=== PATIENT | male | born 1980 | race Caucasian/White ===

== ENCOUNTER → 2021-04-17 10:13 | Outpatient (BNVA) | payer SELFPAY | PROVIDERS: PCP Nurse Practitioner; Visit Provider Nurse Practitioner | DX: I10 Essential (primary) hypertension (principal) | CPT/HCPCS: 80053 ==

== ENCOUNTER → 2021-05-07 14:35 | Outpatient (BNVA) | payer OTHER, SELFPAY | PROVIDERS: PCP Nurse Practitioner; Visit Provider Nurse Practitioner Family | DX: Z20.822 Contact with and (suspected) exposure to COVID-19 (principal); R50.9 Fever, unspecified | CPT/HCPCS: 87635 ==

== ENCOUNTER → 2022-05-26 15:26 | Outpatient (BNVA) | payer OTHER, SELFPAY | PROVIDERS: Visit Provider Nurse Practitioner Family | DX: R50.9 Fever, unspecified (principal) | CPT/HCPCS: 87400; 87426 ==

== ENCOUNTER 2022-10-22 21:15 | Emergency (ER) | payer OTHER, SELFPAY ==
[2022-10-22 21:22] VITALS: BP 160/114; PULSE 90; RESP 19; TEMP 37.1; O2SAT 95; BMI 34.8
--- NOTE | 2022-10-22 21:26 | ECG_ITS ---
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 Measurements Intervals [place] Rate: 91 P: 49 NE: 198 QRS: -20 QRSD: 121 T: 23 QT: 334 QTc: 412 Interpretive Statements SINUS RHYTHM MODERATE INTRAVENTRICULAR CONDUCTION DELAY [110+ ms QRS DURATION] MODERATE VOLTAGE CRITERIA FOR LVH, CONSIDER NORMAL VARIANT [MEETS CRITERIA IN ONE OF: R(aVL), S(V1), R(V5), R(V5/V6)+S(V1)] No previous ECG available for comparison Electronically Signed On 10-22-2022 23:02:40 CDT by Lisandro Holt M.D. [id number]
--- NOTE | 2022-10-22 21:27 | XRR_ITS ---
PROCEDURE INFORMATION: Exam: XR Chest Exam date and time: 10/22/2022 9:39 PM Age: 42 years old Clinical indication: Pain; Chest pressure; Additional info: Chest pain TECHNIQUE: Imaging protocol: Radiologic exam of the chest. Views: 1 view. COMPARISON: No relevant prior studies available. FINDINGS: Lungs: Unremarkable. No consolidation. Pleural spaces: Unremarkable. No pleural effusion. No pneumothorax. Heart/Mediastinum: Unremarkable. No cardiomegaly. Bones/joints: Unremarkable. XR/XR chest 1V portable [id number] IMPRESSION: No acute findings.
--- NOTE | 2022-10-22 21:37 | ED_ITS ---
Documented by User: Lewis Schaffer 10/22/22 23:36 HPI - Chest Pain General: Chief Complaint: Chest Pain Stated Complaint: CP Time Seen by Provider: 10/22/22 21:16 History of Present Illness: 42-year-old male presents emergency department chief complaint of having chest pain and high blood pressure prior to arrival patient is a known history of high blood pressure reports been noncompliant with medications last 6 months patient reports he did have some chest pressure reports no shortness of breath or palpitations associated with it. Patient presents to the ER for further assessment and management Associated symptoms: Deny abdominal pain, dyspnea, fever(s), nausea, palpitations or vomiting Review of Systems General: Reports: 10 or more systems reviewed and unremarkable except in HPI and below Const: Denies: fever(s), chills or fatigue Eyes: Denies: change in vision or blurry vision Card: Reports: chest pain; Denies: palpitations Resp: Denies: dyspnea or productive cough GI: Denies: abdominal pain, nausea or vomiting : Denies: flank pain Musc: Denies: extremity pain or extremity swelling Skin/Breast: Denies: rash or pruritus Neuro: Reports: headache(s) Psych: Denies: anxiety or depression Justin/Lymph: Denies: easy bleeding All/Imm: Denies: urticaria, throat swelling or facial swelling PFSH ED PFSH: Medical History Cigarette smoker Surgical History History of tonsillectomy History of tympanostomy tube placement Family History Mother Diabetes Hypertension Denies family history of Dementia Lung disease Cancer Stroke Social History Smoking and tobacco status: current every day smoker Second hand smoke exposure: No Smoking risk assessment/counseling performed?: No Alcohol intake: never Desire information about alcohol rehabilitation?: No Counseling given: No Substance/Drug Use: never Desire information about substance/drug rehabilitation?: No Counseling given: No Adopted: No Caregiver/support person: No Lives independently: Yes Household members: family Housing: House Marital status: Single Number of children: 0 service: No Current occupational status: employed Current occupation: [employer] Pets and animals: Yes Pets & animals: dog(s) Do you think of yourself as: Straight/Heterosexual Current gender identity: Male Physical Exam Narrative: EXAM NARRATIVE: Patient appears nontoxic appears in no obvious acute distress. No focal neurodeficit appreciated GCS of 15 NIH is 0 Const: COMMON NORMALS: no acute distress, patient oriented x3 and healthy appearing HENMT: COMMON NORMALS: normocephalic and atraumatic HEAD & SCALP: normocephalic and atraumatic Eye: COMMON NORMALS: Equal, round and reactive pupils present and EOMs intact bilaterally PUPIL: Yes Equal, round and reactive pupils present Neck/C-Spine: COMMON NORMALS: full ROM, supple and no JVD Lymph: LYMPHATIC: no lymphadenopathy noted Chest: COMMONS NORMALS: normal inspection of the chest and normal palpation of entire chest wall Resp: COMMON NORMALS: normal respiratory effort, No retractions and clear to auscultation bilaterally EFFORT & INSPECTION: Yes able to speak in complete sentences and Yes symmetric chest movement AUSCULTATION: clear to auscultation bilaterally Cardio: COMMON NORMALS: no JVD, regular rate and regular rhythm RATE: regular rate RHYTHM: regular rhythm GI: COMMON NORMALS: Normal to inspection, nondistended, normoactive bowel sounds present, Soft to palpation and non-tender INSPECTION: Yes normal to inspection PALPATION: Yes Soft to palpation : COMMON NORMALS: Yes no CVA tenderness BLADDER/KIDNEY EXAM: Yes no CVA tenderness Back/Pelvis: COMMON NORMALS: no CVA tenderness Extremity: COMMON NORMALS: normal to inspection and full ROM Neuro: COMMON NORMALS: patient oriented x3, CN's II-XII intact bilaterally, moves all extremities and no focal motor deficits Psych: COMMON NORMALS: mental status grossly normal, Normal thought process present, cooperative and normal affect THOUGHT PROCESS: Normal thought process present Skin: COMMON NORMALS: no rashes or lesions noted GENERAL SKIN EXAM: no rashes or lesions noted Course Vital Signs: Vital signs: Vital Signs Temperature 98.7 F 10/22/22 21:22 Pulse Rate 92 10/23/22 00:00 Respiratory Rate 20 H 10/23/22 00:00 Blood Pressure 133/89 10/23/22 00:00 Pulse Oximetry 98 10/23/22 00:00 Oxygen Delivery Me thod Room Air 10/22/22 21:22 MDM - Chest Pain Medical Decision Making Due to the patient's symptoms and condition lab work and imaging will be obtained, medication will provided for the patient's high blood pressure we will continue to follow. Initial cardiac troponin came back unremarkable patient blood pressures continue to improve throughout his stay in the emergency department anticipate discharge home pending 2-hour troponin this patient was signed out to Dr. Moody at 2318 anticipate discharge home pending his 2-hour troponin Lab Data 10/22/22 21:38 10/22/22 21:38 Radiology Impressions Chest X-Ray 10/22/22 21:27 IMPRESSION: No acute findings. Laboratory Results WBC 8.5 10^3/uL (4.0-10.0) 10/22/22 21:38 RBC 5.51 10^6/uL (4.1-5.3) H 10/22/22 21:38 Hgb 13.9 g/dL (11.7-16.6) 10/22/22 21:38 Hct 45.1 % (42.0-52.0) 10/22/22 21:38 MCV 81.9 fl (80-94) 10/22/22 21:38 MCH 25.2 pg (28.0-34.0) L 10/22/22 21:38 MCHC 30.8 g/dL (30.0-36.0) 10/22/22 21:38 RDW 14.8 % (12.1-15.1) 10/22/22 21:38 Plt Count 303 10^3/cmm (130-400) 10/22/22 21:38 MPV 10.6 fL (7.4-10.4) H 10/22/22 21:38 Neut % (Auto) 61.0 % 10/22/22 21:38 Lymph % (Auto) 20.5 % 10/22/22 21:38 Cross % (Auto) 11.7 % 10/22/22 21:38 Eos % (Auto) 4.6 % 10/22/22 21:38 Baso % (Auto) 1.7 % 10/22/22 21:38 Neut # (Auto) 5.17 10^3/uL (1.8-7.7) 10/22/22 21:38 Lymph # (Auto) 1.7 10^3/uL (0.8-4.8) 10/22/22 21:38 Cross # (Auto) 1.0 10^3/uL (0.2-0.9) H 10/22/22 21:38 Eos # (Auto) 0.4 10^3/uL (0.0-0.8) 10/22/22 21:38 Baso # (Auto) 0.1 10^3/uL (0.0-0.1) 10/22/22 21:38 Nucleated RBC % (auto) 0 % 10/22/22 21:38 Nucleated RBCs # 0.0 /100WBC 10/22/22 21:38 Sodium 137 mmol/L (136-145) 10/22/22 21:38 Potassium 4.5 mmol/L (3.5-5.1) 10/22/22 21:38 Chloride 101 mmol/L (98-107) 10/22/22 21:38 Carbon Dioxide 23 mmol/L (22-29) 10/22/22 21:38 Anion Gap 17.5 (5-19) 10/22/22 21:38 BUN 14 mg/dL (6-20) 10/22/22 21:38 Creatinine 1.1 mg/dL (0.7-1.2) 10/22/22 21:38 GFR Calculation 73.1 mL/min (90-130) L 10/22/22 21:38 Glucose 97 mg/dL (65-115) 10/22/22 21:38 Calculated Osmolality 284 mOsm/kg (285-295) L 10/22/22 21:38 Calcium 9.3 mg/dL (8.5-10.5) 10/22/22 21:38 Total Bilirubin 0.2 mg/dL (0.15-1.2) 10/22/22 21:38 AST 25 U/L (0-40) 10/22/22 21:38 ALT 25 U/L (0-41) 10/22/22 21:38 Alkaline Phosphatase 82 U/L (40-130) 10/22/22 21:38 Troponin T Baseline 9 ng/L (0-15) 10/22/22 21:38 Troponin T 120 Minute 10.87 ng/L (0-15) 10/22/22 23:56 Delta Troponin T 1.87 ABS# (0-10) 10/22/22 23:56 NT-Pro-B Natriuret Pep 36 pg/mL (0-125) 10/22/22 21:38 Total Protein 7.6 g/dL (6.6-8.7) 10/22/22 21:38 Albumin 4.5 g/dL (3.5-5.2) 10/22/22 21:38 Globulin 3.1 g/dL (1.3-4.6) 10/22/22 21:38 Urine Color Yellow (Yellow) 10/22/22 22:00 Urine Appearance Clear (CLEAR) 10/22/22 22:00 Urine pH 6.5 (5-7) 10/22/22 22:00 Ur Specific Edmond[place] 1.000 (1.005-1.030) L 10/22/22 22:00 Urine Protein Neg (Negative) 10/22/22 22:00 Urine Glucose (UA) Norm (Normal) 10/22/22 22:00 Urine Ketones Negative (Negative) 10/22/22 22:00 Urine Blood Neg (Negative) 10/22/22 22:00 Urine Nitrate Negative (Negative) 10/22/22 22:00 Urine Bilirubin Neg (Negative) 10/22/22 22:00 Urine Urobilinogen Norm mg/dL (Negative) 10/22/22 22:00 Ur Leukocyte Esterase Negative (Negative) 10/22/22 22:00 Urine Opiates Screen Negative ng/mL (Negative) 10/22/22 22:00 Ur Barbiturates Screen Negative ng/mL (Negative) 10/22/22 22:00 Ur Phencyclidine Scrn Negative ng/mL (Negative) 10/22/22 22:00 Ur Amphetamines Screen Negative ng/mL (Negative) 10/22/22 22:00 U Benzodiazepines Scrn Negative ng/mL (Negative) 10/22/22 22:00 Urine Cocaine Screen Negative ng/mL (Negative) 10/22/22 22:00 U Marijuana (THC) Screen Negative ng/mL (Negative) 10/22/22 22:00 Discharge Plan Discharge Patient Disposition: Home Clinical Impression: Chest pain, Essential hypertension Condition: Stable Prescriptions: New Benicar HCT 20-12.5 mg tablet 1 tab PO DAILY Qty: 20 0RF metoprolol tartrate 25 mg tablet 25 mg PO DAILY Qty: 20 0RF No Action ondansetron 8 mg tablet,disintegrating 8 mg PO Q8H PRN (Reason: nausea and vomiting) Qty: 15 0RF ibuprofen 600 mg tablet 600 mg PO Q8H PRN (Reason: pain) Qty: 30 0RF oseltamivir [Tamiflu] 75 mg capsule 75 mg PO BID 5 Days Qty: 10 0RF ondansetron HCl 4 mg tablet 4 mg PO QID PRN (Reason: nausea and vomiting) Qty: 20 0RF Discharge Orders: Discharge ED (Routine); Ordered 10/23/22 Ordered By: Dave Moody Referrals: [facility], [Staff Physician] - 1-3 days Discharge Diet: Cardiac and Low Salt Discharge Activity: Increase activity as tolerated Patient Instructions: Chest Pain (ED), Chronic Hypertension (ED), Opioid Safety, Pain Management Activity Restrictions/Additional Instructions: Please adhere to a low-salt diet please further follow-up with a primary care doctor wanted [facility] in the next 3 to 5 days, please take medication as prescribed and please return the interim if any of your symptoms persist or worse. Coding Level of Care Code ED Cartoonist Special Effects for Chg Fwd Documented by User: Dave Moody, 10/23/22 06:13 HPI - Chest Pain General: Chief Complaint: Chest Pain Stated Complaint: CP Time Seen by Provider: 10/22/22 21:16 [facility] ED 2 PFS: Medical History Cigarette smoker Surgical History History of tonsillectomy History of tympanostomy tube placement Family History Mother Diabetes Hypertension Denies family history of Dementia Lung disease Cancer Stroke Social History Smoking and tobacco status: current every day smoker Second hand smoke exposure: No Smoking risk assessment/counseling performed?: No Alcohol intake: never Desire information about alcohol rehabilitation?: No Counseling given: No Substance/Drug Use: never Desire information about substance/drug rehabilitation?: No Counseling given: No Adopted: No Caregiver/support person: No Lives independently: Yes Household members: family Housing: House Marital status: Single Number of children: 0 service: No Current occupational status: employed Current occupation: [employer] Pets and animals: Yes Pets & animals: dog(s) Do you think of yourself as: Straight/Heterosexual Current gender identity: Male Course Vital Signs: Vital signs: Vital Signs Temperature 98.7 F 10/22/22 21:22 Pulse Rate 92 10/23/22 00:00 Respiratory Rate 20 H 10/23/22 00:00 Blood Pressure 133/89 10/23/22 00:00 Pulse Oximetry 98 10/23/22 00:00 Oxygen Delivery Me thod Room Air 10/22/22 21:22 MDM - Chest Pain Medical Decision Making Due to the patient's symptoms and condition lab work and imaging will be obtained, medication will provided for the patient's high blood pressure we will continue to follow. Initial cardiac troponin came back unremarkable patient blood pressures continue to improve throughout his stay in the emergency department anticipate discharge home pending 2-hour troponin this patient was signed out to Dr. Moody at 2318 anticipate discharge home pending his 2-hour troponin Patient's blood pressure is improved. Troponin delta is 2. Chest x-ray is negative. Other labs are nonremarkable. He will be allowed discharge home. Lab Data 10/22/22 21:38 10/22/22 21:38 Radiology Impressions Chest X-Ray 10/22/22 21:27 IMPRESSION: No acute findings. Laboratory Results WBC 8.5 10^3/uL (4.0-10.0) 10/22/22 21:38 RBC 5.51 10^6/uL (4.1-5.3) H 10/22/22 21:38 Hgb 13.9 g/dL (11.7-16.6) 10/22/22 21: Hct 45.1 % (42.0-52.0) 10/22/22 21: MCV 81.9 fl (80-94) 10/22/22 21: MCH 25.2 pg (28.0-34.0) L 10/22/22 21: MCHC 30.8 g/dL (30.0-36.0) 10/22/22 21:38 RDW 14.8 % (12.1-15.1) 10/22/22 21:38 Plt Count 303 10^3/cmm (130-400) 10/22/22 21:38 MPV 10.6 fL (7.4-10.4) H 10/22/22 21:38 Neut % (Auto) 61.0 % 10/22/22 21:38 Lymph % (Auto) 20.5 % 10/22/22 21:38 Cross % (Auto) 11.7 % 10/22/22 21:38 Eos % (Auto) 4.6 % 10/22/22 21:38 Baso % (Auto) 1.7 % 10/22/22 21:38 Neut # (Auto) 5.17 10^3/uL (1.8-7.7) 10/22/22 21:38 Lymph # (Auto) 1.7 10^3/uL (0.8-4.8) 10/22/22 21:38 Cross # (Auto) 1.0 10^3/uL (0.2-0.9) H 10/22/22 21:38 Eos # (Auto) 0.4 10^3/uL (0.0-0.8) 10/22/22 21:38 Baso # (Auto) 0.1 10^3/uL (0.0-0.1) 10/22/22 21:38 Nucleated RBC % (auto) 0 % 10/22/22 21:38 Nucleated RBCs # 0.0 /100WBC 10/22/22 21:38 Sodium 137 mmol/L (136-145) 10/22/22 21:38 Potassium 4.5 mmol/L (3.5-5.1) 10/22/22 21:38 Chloride 101 mmol/L (98-107) 10/22/22 21:38 Carbon Dioxide 23 mmol/L (22-29) 10/22/22 21:38 Anion Gap 17.5 (5-19) 10/22/22 21:38 BUN 14 mg/dL (6-20) 10/22/22 21:38 Creatinine 1.1 mg/dL (0.7-1.2) 10/22/22 21:38 GFR Calculation 73.1 mL/min (90-130) L 10/22/22 21:38 Glucose 97 mg/dL (65-115) 10/22/22 21:38 Calculated Osmolality 284 mOsm/kg (285-295) L 10/22/22 21:38 Calcium 9.3 mg/dL (8.5-10.5) 10/22/22 21:38 Total Bilirubin 0.2 mg/dL (0.15-1.2) 10/22/22 21:38 AST 25 U/L (0-40) 10/22/22 21:38 ALT 25 U/L (0-41) 10/22/22 21:38 Alkaline Phosphatase 82 U/L (40-130) 10/22/22 21:38 Troponin T Baseline 9 ng/L (0-15) 10/22/22 21:38 Troponin T 120 Minute 10.87 ng/L (0-15) 10/22/22 23:56 Delta Troponin T 1.87 ABS# (0-10) 10/22/22 23:56 NT-Pro-B Natriuret Pep 36 pg/mL (0-125) 10/22/22 21:38 Total Protein 7.6 g/dL (6.6-8.7) 10/22/22 21:38 Albumin 4.5 g/dL (3.5-5.2) 10/22/22 21:38 Globulin 3.1 g/dL (1.3-4.6) 10/22/22 21:38 Urine Color Yellow (Yellow) 10/22/22 22:00 Urine Appearance Clear (CLEAR) 10/22/22 22:00 Urine pH 6.5 (5-7) 10/22/22 22:00 Ur Specific Edmondson 1.000 (1.005-1.030) L 10/22/22 22:00 Urine Protein Neg (Negative) 10/22/22 22:00 Urine Glucose (UA) Norm (Normal) 10/22/22 22:00 Urine Ketones Negative (Negative) 10/22/22 22:00 Urine Blood Neg (Negative) 10/22/22 22:00 Urine Nitrate Negative (Negative) 10/22/22 22:00 Urine Bilirubin Neg (Negative) 10/22/22 22:00 Urine Urobilinogen Norm mg/dL (Negative) 10/22/22 22:00 Ur Leukocyte Esterase Negative (Negative) 10/22/22 22:00 Urine Opiates Screen Negative ng/mL (Negative) 10/22/22 22:00 Ur Barbiturates Screen Negative ng/mL (Negative) 10/22/22 22:00 Ur Phencyclidine Scrn Negative ng/mL (Negative) 10/22/22 22:00 Ur Amphetamines Screen Negative ng/mL (Negative) 10/22/22 22:00 U Benzodiazepines Scrn Negative ng/mL (Negative) 10/22/22 22:00 Urine Cocaine Screen Negative ng/mL (Negative) 10/22/22 22:00 U Marijuana (THC) Screen Negative ng/mL (Negative) 10/22/22 22:00 Discharge Plan Discharge Patient Disposition: Home Clinical Impression: Chest pain, Essential hypertension Condition: Stable Prescriptions: New Benicar HCT 20-12.5 mg tablet 1 tab PO DAILY Qty: 20 0RF metoprolol tartrate 25 mg tablet 25 mg PO DAILY Qty: 20 0RF No Action ondansetron 8 mg tablet,disintegrating 8 mg PO Q8H PRN (Reason: nausea and vomiting) Qty: 15 0RF ibuprofen 600 mg tablet 600 mg PO Q8H PRN (Reason: pain) Qty: 30 0RF oseltamivir [Tamiflu] 75 mg capsule 75 mg PO BID 5 Days Qty: 10 0RF ondansetron HCl 4 mg tablet 4 mg PO QID PRN (Reason: nausea and vomiting) Qty: 20 0RF Discharge Orders: Discharge ED (Routine); Ordered 10/23/22 Ordered By: Dave Moody Referrals: [facility], [Staff Physician] - 1-3 days Discharge Diet: Cardiac and Low Salt Discharge Activity: Increase activity as tolerated Patient Instructions: Chest Pain (ED), Chronic Hypertension (ED), Opioid Safety, Pain Management Activity Restrictions/Additional Instructions: Please adhere to a low-salt diet please further follow-up with a primary care doctor wanted [facility] in the next 3 to 5 days, please take medication as prescribed and please return the interim if any of your symptoms persist or worse. Coding Level of Care Code ED Cartoonist Special Effects for Horacio Argueta
[2022-10-22 21:47] LABS: Basophils # 0.1 10^3/uL (0.0-0.1); Basophils % 1.7 %; Eosinophils # 0.4 10^3/uL (0.0-0.8); Eosinophils % 4.6 %; Hematocrit 45.1 % (42.0-52.0); Hemoglobin 13.9 g/dL (11.7-16.6); Lymphocytes # 1.7 10^3/uL (0.8-4.8); Lymphocytes % 20.5 %; Mean Corpuscular HGB Conc 30.8 g/dL (30.0-36.0); Mean Corpuscular Hemoglobin 25.2 pg (28.0-34.0); Mean Corpuscular Volume 81.9 fl (80-94); Mean Platelet Volume 10.6 fL (7.4-10.4); Monocytes % 11.7 %; Neutrophils # 5.17 10^3/uL (1.8-7.7); Nucleated Red Blood Cells % 0 %; Platelet Count 303 10^3/cmm (130-400); Red Blood Count 5.51 10^6/uL (4.1-5.3); Red Cell Distribution Width 14.8 % (12.1-15.1); White Blood Count 8.5 10^3/uL (4.0-10.0)
[2022-10-22] MEDS: hyDRALAzine 20 mg/mL INJ 1 mL 10 MG IVP (21:59)
[2022-10-22 22:12] LABS: Troponin(5th) Baseline 9 ng/L (0-15)
[2022-10-22 22:20] LABS: Alanine Aminotransferase 25 U/L (0-41); Albumin Level 4.5 g/dL (3.5-5.2); Alkaline Phosphatase 82 U/L (40-130); Blood Urea Nitrogen 14 mg/dL (6-20); Calcium 9.3 mg/dL (8.5-10.5); Carbon Dioxide 23 mmol/L (22-29); Chloride 101 mmol/L (98-107); Globulin 3.1 g/dL (1.3-4.6); Glomerular Filtration Rate 73.1 mL/min (90-130); Glucose 97 mg/dL (65-115); NT Pro B Type Natriuretic Pept 36 pg/mL (0-125); Osmolality Calculated 284 mOsm/kg (285-295); Sodium 137 mmol/L (136-145); Total Bilirubin 0.2 mg/dL (0.15-1.2); Total Protein 7.6 g/dL (6.6-8.7)
[2022-10-22 22:24] LABS: Anion Gap 17.5 (5-19); Aspartate Amino Transferase 25 U/L (0-40); Potassium 4.5 mmol/L (3.5-5.1)
[2022-10-22 22:33] LABS: Add Urine Microscopic? NO; Charge for UA Resulting for Rev
[2022-10-22 22:37] LABS: Bilirubin Urine Neg (Negative); Blood Urine Neg (Negative); Glucose Urine UA Norm (Normal); Ketones Urine Negative (Negative); Leukocyte Esterase Urine Negative (Negative); Nitrate Urine Negative (Negative); Protein Urine Neg (Negative); Urine Appearance Clear (CLEAR); Urine Color Yellow (Yellow); Urobilinogen Urine Norm (Negative); pH Urine 6.5 (5-7)
[2022-10-22 22:45] LABS: Amphetamines Screen Urine Negative (Negative); Barbiturates Screen Urine Negative (Negative); Benzodiazepines Screen Urine Negative (Negative); Cocaine Screen Urine Negative (Negative); Opiate Screen Urine Negative (Negative); PCP Screen Urine Negative (Negative); THC Screen Urine Negative (Negative)
--- NOTE | 2022-10-22 23:28 | ECG_ITS ---
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 Measurements Intervals [place] Rate: 82 P: 54 [place]: 198 QRS: -14 QRSD: 121 T: 24 QT: 354 QTc: 416 Interpretive Statements SINUS RHYTHM MODERATE INTRAVENTRICULAR CONDUCTION DELAY [110+ ms QRS DURATION] MODERATE VOLTAGE CRITERIA FOR LVH, CONSIDER NORMAL VARIANT [MEETS CRITERIA IN ONE OF: R(aVL), S(V1), R(V5), R(V5/V6)+S(V1)] Compared to ECG 10/22/2022 21:29:11 No significant changes Electronically Signed On 10-23-2022 9:57:16 CDT by Efraín Hsieh M.D. [id number]
[2022-10-23] VITALS: BP 133/89; PULSE 92; RESP 20; O2SAT 98
[2022-10-23 00:33] LABS: Troponin 5 2HR 10.87 ng/L (0-15)
[2022-10-23 01:09] LABS: Troponin 5 2HR Delta 1.87 ABS# (0-10)
--- NOTE | 2022-10-27 15:47 | DCPLANNER ---
studio operations manager called patient due to no primary care provider - no answer at this time.
== END 2022-10-23 01:20 | disposition home or self-care (01) ==
PROVIDERS: Emergency Medicine; Emergency Provider Emergency Medicine
DX: R07.9 Chest pain, unspecified (principal); I10 Essential (primary) hypertension; F17.210 Nicotine dependence, cigarettes, uncomplicated
CPT/HCPCS: 36415; 71045; 80053; 80306; 81003; 83880; 84484; 85025; 93005; 96374; 99285; J0360

== ENCOUNTER 2023-06-24 09:15 | Inpatient (IN) | payer OTHER, SELFPAY ==
[2023-06-24] VITALS (11 sets, daily range): BP systolic 110–164; BP diastolic 70–94; PULSE 97–124; RESP 15–26; TEMP 36.4–38.9; O2SAT 92–99
--- NOTE | 2023-06-24 10:02 | ED_ITS ---
Documented by User: [email or web address] Franco 06/24/23 12:21 HPI - Skin/Abscess/Foreign Bdy 2 General: Chief complaint: Skin/Abscess/Foreign Body Stated complaint: pt states spider bite on neck Time Seen by Provider: 06/24/23 09:19 Source: patient Mode of arrival: ambulatory Limitations: no limitations History of Present Illness: Patient is a nice 42-year-old male who presents to ED today along with his for evaluation of a posterior neck infection. Patient states approximately 5 days ago he noticed a small pimple-like lesion to the posterior aspect of his neck. He states over the course of 2 to 3 days it increased in size to about a quarter. He states he was then seen at a walk-in clinic and given an IM shot of dexamethasone. He was then placed on Bactrim which he has been taking as prescribed since Tuesday of this week. Patient and family states since that time the area has significantly worsened thus prompting their ED evaluation today. Patient is not been running fevers but states he does feel bad and is reporting some nausea. MD complaint: abscess/boil Onset (ago): day(s) Tetanus up to date: yes Location: neck Severity: severe Pain Consistency: constant Relieving factors: none Exacerbating factors: none Context: none Associated symptoms: Reports nausea; Deny chills, fever(s) or vomiting Treatments prior to arrival: corticosteroid and antibiotic Review of Systems 2 Const: Denies: fever(s), chills, body aches, fatigue or malaise Eyes: Denies: change in vision, blurry vision, photophobia, floaters or seeing flashes Card: Denies: chest pain Resp: Denies: dyspnea GI: Reports: nausea; Denies: abdominal pain, vomiting or diarrhea Musc: Reports: neck pain; Denies: back pain, extremity pain or joint pain Skin/Breast: Reports: skin pain, skin swelling and new lesions Neuro: Denies: headache(s), numbness in extremities, weakness in extremities, sensory changes or dizziness PFSH ED 2 PFSH: Medical History Essential hypertension Cigarette smoker Surgical History History of tympanostomy tube placement History of tonsillectomy Family History Mother Diabetes Hypertension Denies family history of Dementia Lung disease Cancer Stroke Social History Smoking and tobacco/nicotine status: current every day tobacco/nicotine user Second hand smoke exposure: No Alcohol intake: never Substance/Drug Use: never Adopted: No Caregiver/support person: No Lives independently: Yes Household members: family Housing: House Marital status: Single Number of children: 0 service: No Current occupational status: employed Current occupation: [employer] Pets and animals: Yes Pets & animals: dog(s) Do you think of yourself as: Straight/Heterosexual Current gender identity: Male Physical Exam 2 Const: COMMON NORMALS: no acute distress, average body habitus, patient oriented x3, no limitations, alert and well nourished GENERAL APPEARANCE: c ooperative ORIENTATION/CONSCIOUSNESS: Yes awake, Yes oriented to person, Yes oriented to place and Yes oriented to time HENMT: COMMON NORMALS: normocephalic and atraumatic HEAD & SCALP: normal to inspection, normocephalic and atraumatic FACE & SINUS: normal facial exam Eye: COMMON NORMALS: Equal, round and reactive pupils present and EOMs intact bilaterally GENERAL EYE: appearance normal, both eyes and all related structures and normal light reflex PUPIL: Yes Equal, round and reactive pupils present DIRECT OPHTHALMOSCOPY: Yes normal light reflex Neck/C-Spine: COMMON NORMALS: no lymphadenopathy and no meningeal signs NECK IMAGES: 1. significant cellulitis, edema, and induration surrounding entire posterior neck; there are several pustular lesions present but no areas of distinct fluctuance or drainable abscess collection noted Resp: COMMON NORMALS: normal respiratory effort and clear to auscultation bilaterally AUSCULTATION: clear to auscultation bilaterally Cardio: COMMON NORMALS: regular rhythm RATE: tachycardic RHYTHM: regular rhythm Extremity: GENERAL: Yes normal exam except as noted Neuro: COMMON NORMALS: patient oriented x3, moves all extremities, no focal motor deficits and no sensory deficits noted SENSORIUM/ORIENTATION: Yes alert, Yes oriented to person, Yes oriented to place and Yes oriented to time MENINGEAL SIGNS: Yes no meningeal signs Skin: NARRATIVE SKIN EXAM: see above for pertinent skin findings Course 2 Consultations: Consultation #1: Dr. Barker-accepts hospitalization; requests general surgery consult Consultation #2: Dr. Olivo-will consult on patient Vital Signs: Vital signs: Vital Signs Temperature 99.5 F 06/25/23 08:56 Pulse Rate 119 H 06/25/23 11:13 Respiratory Rate 17 06/25/23 11:13 Blood Pressure 121/75 06/25/23 11:13 Pulse Oximetry 92 06/25/23 11:13 Oxygen Delivery Me thod Room Air 06/25/23 11:13 Oxygen Flow Rate 6 06/25/23 08:41 MDM - Skin/Abscess/Foreign Bdy Medicial Decision Making Patient is a 42-year-old male here for an infection to the posterior aspect of his neck. He arrives tachycardic but afebrile. He was placed on antibiotics 3 days ago and has continued to worsen this has failed outpatient therapy. He has a white count of over 23,000 with significantly elevated inflammatory markers. His lactate is normal. CT scan showing significant inflammation and edema but no discernible abscess or fluid collection. I spoke with the hospitalist who accepts admission. I spoke to Dr. Olivo who will also follow along on patient. Medical Records I reviewed the patient's medical records. Lab Data I reviewed the patient's lab results. 06/25/23 04:27 06/25/23 04:27 Laboratory Results WBC 23.31 10^3/uL (3.29-11.43) H 06/24/23 10:10 RBC 5.09 10^6/uL (3.85-5.65) 06/24/23 10:10 Hgb 13.10 g/dL (11.27-16.99) 06/24/23 10:10 Hct 41.2 % (37-53) 06/24/23 10:10 MCV 80.9 fl (82-101) L 06/24/23 10:10 MCH 25.7 pg (27-33) L 06/24/23 10:10 MCHC 31.8 g/dL (30-55) 06/24/23 10:10 RDW 15.2 % (12.1-15.1) H 06/24/23 10:10 Plt Count 461 10^3/cmm (157-399) H 06/24/23 10:10 MPV 10.2 fL (7.4-10.4) 06/24/23 10:10 Neut % (Auto) 85.3 % 06/24/23 10:10 Lymph % (Auto) 4.9 % 06/24/23 10:10 Traill % (Auto) 7.3 % 06/24/23 10:10 Eos % (Auto) 0.6 % 06/24/23 10:10 Baso % (Auto) 0.5 % 06/24/23 10:10 Neut # (Auto) 19.87 10^3/uL (1.8-7.7) H 06/24/23 10:10 Lymph # (Auto) 1.2 10^3/uL (0.8-4.8) 06/24/23 10:10 Traill # (Auto) 1.7 10^3/uL (0.2-0.9) H 06/24/23 10:10 Eos # (Auto) 0.1 10^3/uL (0.0-0.8) 06/24/23 10:10 Baso # (Auto) 0.1 10^3/uL (0.0-0.1) 06/24/23 10:10 Nucleated RBC % (auto) 0 % 06/24/23 10:10 Nucleated RBCs # 0.0 /100WBC 06/24/23 10:10 ESR 97 mm/hr (0-10) H 06/24/23 10:10 Sodium 135 mmol/L (136-145) L 06/24/23 10:10 Potassium 3.6 mmol/L (3.5-5.1) 06/24/23 10:10 Chloride 97 mmol/L (98-107) L 06/24/23 10:10 Carbon Dioxide 24 mmol/L (22-29) 06/24/23 10:10 Anion Gap 17.6 (5-19) 06/24/23 10:10 BUN 14 mg/dL (6-20) 06/24/23 10:10 Creatinine 1.0 mg/dL (0.7-1.2) 06/24/23 10:10 GFR Calculation 81.6 mL/min (90-130) L 06/24/23 10:10 Glucose 181 mg/dL (65-115) H 06/24/23 10:10 Estimat Average Glucose 134 06/24/23 10:10 Hemoglobin A1c 6.3 % (4.0-6.0) H 06/24/23 10:10 Calculated Osmolality 285 mOsm/kg (285-295) 06/24/23 10:10 Lactic Acid 1.7 mmol/L (0.5-2.2) 06/24/23 10:10 Calcium 9.9 mg/dL (8.5-10.5) 06/24/23 10:10 Total Bilirubin 0.3 mg/dL (0.15-1.2) 06/24/23 10:10 AST 25 U/L (0-40) 06/24/23 10:10 ALT 49 U/L (0-41) H 06/24/23 10:10 Alkaline Phosphatase 93 U/L (40-130) 06/24/23 10:10 C-Reactive Protein 211.9 mg/L (0.0-4.9) H 06/24/23 10:10 Total Protein 8.3 g/dL (6.6-8.7) 06/24/23 10:10 Albumin 4.0 g/dL (3.5-5.2) 06/24/23 10:10 Globulin 4.3 g/dL (1.3-4.6) 06/24/23 10:10 All radiology interpretation(s) finalized by discharge Discharge Plan Discharge Patient Disposition: Admitted As Inpatient Admit Provider: Ion Barker Clinical Impression: Cellulitis of neck Condition: Stable Coding Level of Care Code ED Optometrist Assistant for Chg Fwd Documented by User: Rigo Vaca DO 06/25/23 11:35 HPI - Skin/Abscess/Foreign Bdy 2 General: Chief complaint: Skin/Abscess/Foreign Body Stated complaint: pt states spider bite on neck Time Seen by Provider: 06/24/23 09:19 PFSH ED 2 PFSH: Medical History Essential hypertension Cigarette smoker Surgical History History of tympanostomy tube placement History of tonsillectomy Family History Mother Diabetes Hypertension Denies family history of Dementia Lung disease Cancer Stroke Social History Smoking and tobacco/nicotine status: current every day tobacco/nicotine user Second hand smoke exposure: No Alcohol intake: never Substance/Drug Use: never Adopted: No Caregiver/support person: No Lives independently: Yes Household members: family Housing: House Marital status: Single Number of children: 0 service: No Current occupational status: employed Current occupation: [employer] Pets and animals: Yes Pets & animals: dog(s) Do you think of yourself as: Straight/Heterosexual Current gender identity: Male Physical Exam 2 Neck/C-Spine: NECK IMAGES: 1. significant cellulitis, edema, and induration surrounding entire posterior neck; there are several pustular lesions present but no areas of distinct fluctuance or drainable abscess collection noted Course 2 Vital Signs: Vital signs: Vital Signs Temperature 99.5 F 06/25/23 08:56 Pulse Rate 119 H 06/25/23 11:13 Respiratory Rate 17 06/25/23 11:13 Blood Pressure 121/75 06/25/23 11:13 Pulse Oximetry 92 06/25/23 11:13 Oxygen Delivery Me thod Room Air 06/25/23 11:13 Oxygen Flow Rate 6 06/25/23 08:41 MDM - Skin/Abscess/Foreign Bdy Medicial Decision Making Patient is a 42-year-old male here for an infection to the posterior aspect of his neck. He arrives tachycardic but afebrile. He was placed on antibiotics 3 days ago and has continued to worsen this has failed outpatient therapy. He has a white count of over 23,000 with significantly elevated inflammatory markers. His lactate is normal. CT scan showing significant inflammation and edema but no discernible abscess or fluid collection. I spoke with the hospitalist who accepts admission. I spoke to Dr. Olivo who will also follow along on patient. Chart reviewed and patient discussed with midlevel. Agree with assessment and plan. Orders written consult Dr. Olivo for surgical care Lab Data 06/25/23 04:27 06/25/23 04:27 Laboratory Results WBC 23.31 10^3/uL (3.29-11.43) H 06/24/23 10:10 RBC 5.09 10^6/uL (3.85-5.65) 06/24/23 10:10 Hgb 13.10 g/dL (11.27-16.99) 06/24/23 10:10 Hct 41.2 % (37-53) 06/24/23 10:10 MCV 80.9 fl (82-101) L 06/24/23 10:10 MCH 25.7 pg (27-33) L 06/24/23 10:10 MCHC 31.8 g/dL (30-55) 06/24/23 10:10 RDW 15.2 % (12.1-15.1) H 06/24/23 10:10 Plt Count 461 10^3/cmm (157-399) H 06/24/23 10:10 MPV 10.2 fL (7.4-10.4) 06/24/23 10:10 Neut % (Auto) 85.3 % 06/24/23 10:10 Lymph % (Auto) 4.9 % 06/24/23 10:10 Traill % (Auto) 7.3 % 06/24/23 10:10 Eos % (Auto) 0.6 % 06/24/23 10:10 Baso % (Auto) 0.5 % 06/24/23 10:10 Neut # (Auto) 19.87 10^3/uL (1.8-7.7) H 06/24/23 10:10 Lymph # (Auto) 1.2 10^3/uL (0.8-4.8) 06/24/23 10:10 Traill # (Auto) 1.7 10^3/uL (0.2-0.9) H 06/24/23 10:10 Eos # (Auto) 0.1 10^3/uL (0.0-0.8) 06/24/23 10:10 Baso # (Auto) 0.1 10^3/uL (0.0-0.1) 06/24/23 10:10 Nucleated RBC % (auto) 0 % 06/24/23 10:10 Nucleated RBCs # 0.0 /100WBC 06/24/23 10:10 ESR 97 mm/hr (0-10) H 06/24/23 10:10 Sodium 135 mmol/L (136-145) L 06/24/23 10:10 Potassium 3.6 mmol/L (3.5-5.1) 06/24/23 10:10 Chloride 97 mmol/L (98-107) L 06/24/23 10:10 Carbon Dioxide 24 mmol/L (22-29) 06/24/23 10:10 Anion Gap 17.6 (5-19) 06/24/23 10:10 BUN 14 mg/dL (6-20) 06/24/23 10:10 Creatinine 1.0 mg/dL (0.7-1.2) 06/24/23 10:10 GFR Calculation 81.6 mL/min (90-130) L 06/24/23 10:10 Glucose 181 mg/dL (65-115) H 06/24/23 10:10 Estimat Average Glucose 134 06/24/23 10:10 Hemoglobin A1c 6.3 % (4.0-6.0) H 06/24/23 10:10 Calculated Osmolality 285 mOsm/kg (285-295) 06/24/23 10:10 Lactic Acid 1.7 mmol/L (0.5-2.2) 06/24/23 10:10 Calcium 9.9 mg/dL (8.5-10.5) 06/24/23 10:10 Total Bilirubin 0.3 mg/dL (0.15-1.2) 06/24/23 10:10 AST 25 U/L (0-40) 06/24/23 10:10 ALT 49 U/L (0-41) H 06/24/23 10:10 Alkaline Phosphatase 93 U/L (40-130) 06/24/23 10:10 C-Reactive Protein 211.9 mg/L (0.0-4.9) H 06/24/23 10:10 Total Protein 8.3 g/dL (6.6-8.7) 06/24/23 10:10 Albumin 4.0 g/dL (3.5-5.2) 06/24/23 10:10 Globulin 4.3 g/dL (1.3-4.6) 06/24/23 10:10 Discharge Plan Discharge Patient Disposition: Admitted As Inpatient Admit Provider: Ion Barker Clinical Impression: Cellulitis of neck Condition: Stable Coding Level of Care Code ED Optometrist Assistant for Chg Fwd
--- NOTE | 2023-06-24 10:12 | CT_ITS ---
WS: [id number] CT NECK WITH CONTRAST HISTORY: cellulitis/abscess posterior neck TECHNIQUE: Contiguous 2 mm axial images are performed through the neck with intravenous contrast. Sag ittal and coronal reformats are also submitted. All CT scans at [facility] use at least one o f these dose optimization techniques: automated exposure control; mA and/or kV adjustment per patient size (includes targeted exams where dose is matched to clinical indication); or iterative reconstruc tion. CONTRAST: CONTRAST: Omnipaque 350; 100 mL IV. DLP: 330.89 mGy.cm COMPARISON: None available. Large amount of soft tissue inflammation and edema centered along the posterior occiput extending int o the posterior cervical region. There is a large amount of soft tissue edema infiltrating through th e fat and the posterior paraspinal muscles. Edema extends over a length of 14.0 cm and transversely b y 11 cm. There is not a well-defined fluid collection or abscess but there is a large amount of subcu taneous thickening with muscle edema and fat edema. The edema extends to abut the semispinalis muscle s and the trapezius muscles bilaterally. No foreign body identified. There are bilateral cervical chain lymph nodes. These lymph nodes are very slightly enlarged but they are hyperemic and increased in number especially at level 2 and level 3 and also level 5. There are small supraclavicular lymph nodes bilaterally. The airway is normal. Visualized brain is negative. Visualized paranasal sinuses and mastoid air cells are normal. Lung apices are clear. IMPRESSION: 1. There is a large inflammatory process beginning along the posterior occiput and extending inferior ly by 14 cm. Consistent with acute inflammatory process with edema. No abscess identified. 2. Bilateral cervical chain reactive lymphadenopathy.
[2023-06-24 10:21] LABS: Basophils # 0.1 10^3/uL (0.0-0.1); Basophils % 0.5 %; Eosinophils # 0.1 10^3/uL (0.0-0.8); Eosinophils % 0.6 %; Hematocrit 41.2 % (37-53); Lymphocytes # 1.2 10^3/uL (0.8-4.8); Lymphocytes % 4.9 %; Mean Corpuscular HGB Conc 31.8 g/dL (30-55); Mean Corpuscular Hemoglobin 25.7 pg (27-33); Mean Corpuscular Volume 80.9 fl (82-101); Mean Platelet Volume 10.2 fL (7.4-10.4); Monocytes # 1.7 10^3/uL (0.2-0.9); Monocytes % 7.3 %; Neutrophils # 19.87 10^3/uL (1.8-7.7); Neutrophils % 85.3 %; Nucleated Red Blood Cells % 0 %; Platelet Count 461 10^3/cmm (157-399); Red Blood Count 5.09 10^6/uL (3.85-5.65); Red Cell Distribution Width 15.2 % (12.1-15.1); White Blood Count 23.31 10^3/uL (3.29-11.43)
[2023-06-24] MEDS: iohexol 350 mg/mL 500 mL Btl (per mL) IV (10:28)
[2023-06-24 10:34] LABS: Alanine Aminotransferase 49 U/L (0-41); Alkaline Phosphatase 93 U/L (40-130); Anion Gap 17.6 (5-19); Aspartate Amino Transferase 25 U/L (0-40); Blood Urea Nitrogen 14 mg/dL (6-20); C Reactive Protein 211.9 mg/L (0.0-4.9); Calcium 9.9 mg/dL (8.5-10.5); Carbon Dioxide 24 mmol/L (22-29); Chloride 97 mmol/L (98-107); Globulin 4.3 g/dL (1.3-4.6); Glomerular Filtration Rate 81.6 mL/min (90-130); Glucose 181 mg/dL (65-115); Osmolality Calculated 285 mOsm/kg (285-295); Potassium 3.6 mmol/L (3.5-5.1); Sodium 135 mmol/L (136-145); Total Bilirubin 0.3 mg/dL (0.15-1.2); Total Protein 8.3 g/dL (6.6-8.7)
[2023-06-24 10:35] LABS: Lactic Sepsis W/Reflex 1.7 mmol/L (0.5-2.2)
[2023-06-24 10:41] LABS: Erythrocyte Sedimentation Rate 97 mm/hr (0-10)
[2023-06-24] MEDS: tetanus-dipt-pertussis 0.5 mL SDV IM (11:13)
[2023-06-24] MEDS: vancomycin 1,000 MG in sodium chloride 0.9% 250 ML 250 MG IV (11:14)
--- NOTE | 2023-06-24 11:59 | P.HP_ITS ---
Documented by User: [email or web address] Thibodeaux 06/24/23 12:47 Providers/Chief Complaint 2 Admitting Physician: Maurice Barker MD Primary Care Provider: MAVERICK Dubois Chief Complaint: pt states spider bite on neck History of Present Illness Patient is a 42-year-old male with a past medical history of hypertension, who presents to the emergency room with a chief complaint of redness and swelling to posterior neck. Patient will be admitted to the hospital services for skin abscess of posterior neck. Patient reports that he noticed a small pimple to posterior neck approximately 5 days ago. States that the next 2 to 3 days, he noticed an increasing growth to about a quarter size and reported some drainage. Stated that he went to a local clinic on June 21, 2023 and was placed on Bactrim and given a dexamethasone shot. States over the past couple days, symptoms have worsened/increased and swelling/pustules to posterior neck have increased trouble amount. Patient does report feeling unwell , neck and skin pain to posterior neck, with some nausea. He denies any vomiting, fevers, chest pain, abdominal pain, or shortness of breath. Reports in the past, that he has had boils to armpits and back area that looks similar in nature, but went away on there own. While in the emergency room, laboratory studies and radiology imaging were performed. Patient received vancomycin IV, and tetanus vaccine. Review of Systems 2 Narrative: Comprehensive 10 point ROS is negative except as noted in the HPI above. GI: Reports: nausea Skin/Breast: Reports: erythema, skin pain, skin swelling and sores Medications/Allergies Home Medications Medication Instructions Recorded Confirmed Last Taken Type sulfamethoxazole 800 1 tab PO BID 10 days #20 tabs 06/21/23 06/24/23 06/24/23 Rx mg-trimethoprim 160 mg tablet (Bactrim DS) acetaminophen 500 mg tablet 1,000 - 1,500 mg PO Q6H PRN Pain 06/24/23 06/24/23 06/24/23 06:00 History 1500 mg Allergies Allergy/AdvReac Type Severity Reaction Status Date / Time No Known Allergies Allergy Verified 06/24/23 12:28 PFSH Acute 2 PFSH: Medical History Essential hypertension Cigarette smoker Surgical History History of tympanostomy tube placement History of tonsillectomy Family History Mother Diabetes Hypertension Denies family history of Dementia Lung disease Cancer Stroke Social History Smoking and tobacco/nicotine status: current every day tobacco/nicotine user Second hand smoke exposure: No Alcohol intake: never Substance/Drug Use: never Adopted: No Caregiver/support person: No Lives independently: Yes Household members: family Housing: House Marital status: Single Number of children: 0 service: No Current occupational status: employed Current occupation: [employer] Pets and animals: Yes Pets & animals: dog(s) Do you think of yourself as: Straight/Heterosexual Current gender identity: Male Vitals/I&O/Wt Last Vital Signs Temp 97.5 F L 06/24/23 09:16 Pulse 113 H 06/24/23 10:24 Resp 15 06/24/23 09:16 BP 141/84 06/24/23 10:24 Pulse Ox 93 06/24/23 10:24 O2 Del Method Room Air 06/24/23 10:24 Weight last 48 hrs Weight 99.337 kg Physical Exam 2 Narrative: General: Alert, oriented x 3, able to answer questions appropriately HEENT: Normocephalic, moist mucous membranes, posterior oropharynx normal Neck: Supple, posterior neck noted 0/edema/redness/induration. Lymph: No lymphadenopathy noted Respiratory: Even respirations, clear to auscultation throughout, room air, Cardio: RRR, no murmurs, 2+ pulse radial and dorsalis pedis GI: Active bowel sounds throughout per auscultation, : Deferred, Skin: Posterior neck reveals severe erythema with copious amounts of pustules that are draining. Area is edematous and tender to the touch. Redness begins midway of head extending to posterior lower neck line. Data 06/24/23 10:10 06/24/23 10:10 Other Labs: WBC 23.31, platelet 461, ESR 97, close 181, ALT 49, CRP 211.9, CT neck: Radiologist's impression: 1. There is a large inflammatory process beginning along the posterior occiput and extending inferiorly by 14 cm. Consistent with acute inflammatory process with edema. No abscess identified. 2. Bilateral cervical chain reactive lymphadenopathy. A&P Assessment and plan (1) Cellulitis of neck: Posterior of the neck cellulitis severe erythema and pustules noted throughout. Patient received vancomycin while in the emergency room. This is questionable whether or not the patient has hidradenitis suppurativa. After further physical assessment and evaluation, patient has had several scarring to bilateral armpit areas and upper posterior back area that seem to have healed from previous like lesions. Continue vancomycin IV. General surgery consult. Recommendations appreciated. Plan for patient to have procedure with GEN surge tomorrow in AM. N.p.o. after midnight. CBC, CMP in a.m. (2) Essential hypertension: Patient reports a history of hypertension. Was placed on lisinopril in the past but stopped taking it. Will start patient on lisinopril here while in the hospital and follow-up with PCP once stable for discharge. Plan Plan as stated above. Nicotine patch per patient request. Cessation discussed. Patient will continue IV antibiotics and require p.o. antibiotics when stable for discharge. Will have general surgery consult for potential procedure. CODE STATUS: Full code DVT prophylaxis: SCDs Coding Level of Care Code 40244 Diagnoses Cellulitis of neck L03.221 Essential hypertension I10 Time Spent (min) 58 Documented by User: Ion Barker MD 06/24/23 13:19 Providers/Chief Complaint 2 Chief Complaint: pt states spider bite on neck Medications/Allergies Home Medications Medication Instructions Recorded Confirmed Last Taken Type sulfamethoxazole 800 1 tab PO BID 10 days #20 tabs 06/21/23 06/24/23 06/24/23 Rx mg-trimethoprim 160 mg tablet (Bactrim DS) acetaminophen 500 mg tablet 1,000 - 1,500 mg PO Q6H PRN Pain 06/24/23 06/24/23 06/24/23 06:00 History 1500 mg Allergies Allergy/AdvReac Type Severity Reaction Status Date / Time No Known Allergies Allergy Verified 01/05/24 12:28 PFSH Acute 2 PFSH: Medical History Essential hypertension Cigarette smoker Surgical History History of tympanostomy tube placement History of tonsillectomy Family History Mother Diabetes Hypertension Denies family history of Dementia Lung disease Cancer Stroke Social History Smoking and tobacco/nicotine status: current every day tobacco/nicotine user Second hand smoke exposure: No Alcohol intake: never Substance/Drug Use: never Adopted: No Caregiver/support person: No Lives independently: Yes Household members: family Housing: House Marital status: Single Number of children: 0 service: No Current occupational status: employed Current occupation: [employer] Pets and animals: Yes Pets & animals: dog(s) Do you think of yourself as: Straight/Heterosexual Current gender identity: Male Physical Exam 2 Narrative: General: Alert, oriented x 3, able to answer questions appropriately HEENT: Normocephalic, moist mucous membranes, posterior oropharynx normal Neck: Supple, posterior neck noted with /edema/redness/induration. Multiple pustules noted. Lymph: No lymphadenopathy noted Respiratory: Even respirations, clear to auscultation throughout, room air, Cardio: RRR, no murmurs, 2+ pulse radial and dorsalis pedis GI: Active bowel sounds throughout per auscultation, : Deferred, Skin: Posterior neck reveals severe erythema with copious amounts of pustules that are draining. Area is edematous and tender to the touch. Redness begins midway of head extending to posterior lower neck line. Data 06/24/23 10:10 06/24/23 10:10 Other Labs: WBC 23.31, platelet 461, ESR 97, close 181, ALT 49, CRP 211.9, Blood cultures were obtained A&P Assessment and plan (1) Cellulitis of neck: Posterior of the neck cellulitis severe erythema and pustules noted throughout. Patient received vancomycin while in the emergency room. This is questionable whether or not the patient has hidradenitis suppurativa. After further physical assessment and evaluation, patient has had several scarring to bilateral armpit areas and upper posterior back area that seem to have healed from previous like lesions. Continue vancomycin IV. CBC, CMP daily on vancomycin. Potentially renal toxic medication. Add meropenem General surgery consult. Recommendations appreciated. Plan for patient to have procedure with GEN surge tomorrow in AM. N.p.o. after midnight. CBC, CMP in a.m. Tetanus was given (2) Essential hypertension: Patient reports a history of hypertension. Was placed on lisinopril in the past but stopped taking it. Will monitor here, consider starting ARB if remains elevated. Plan Elevated sugar. Check A1c. Plan as stated above. Nicotine patch per patient request. Cessation discussed. Patient will continue IV antibiotics and require p.o. antibiotics when stable for discharge. Will have general surgery consult for potential procedure. CODE STATUS: Full code DVT prophylaxis: Usha Cross Attestations 2 Medical Necessity Statement*: Will need greater than 2 midnight stay for evaluation and treatment of cellulitis, back of neck Diagnoses Cellulitis of neck L03.221 Essential hypertension I10 Time Spent (min) 58
--- NOTE | 2023-06-24 12:30 | PC.PHAR ---
pt states he is not taking benicar hct 20-12.5mg daily rx written 10/22/22 or metoprolol tartrate 25mg daily rx written on 10/22/22-pt states he is only taking the medications entered
--- NOTE | 2023-06-24 12:58 | P.CONIM_ITS ---
Providers/Reason For Consult 2 Consulting Physician/Specialty*: Dr. Raphael Olivo DO/General surgery Reason for Consult*: Posterior neck cellulitis Primary Care Provider: MAVERICK Dubois History of Present Illness History of Present Illness Hema Tavarez is a 42 year old male who presented to the hospital with several day history of enlarging painful cellulitis on his posterior neck. He reports that it has not drained anything. He reports that he has felt feverish with chills at home. He went to an urgent care and was put on antibiotics but it did not improve. Palpation makes the pain worse. Nothing makes pain better. The pain is sharp and constant. The pain does not radiate. He denies any nausea or vomiting. CT shows diffuse cellulitis without a defined fluid collection Review of Systems 2 General: Reports: 10 or more systems reviewed and unremarkable except in HPI and below Medications/Allergies Home Medications Medication Instructions Recorded Confirmed Last Taken Type sulfamethoxazole 800 1 tab PO BID 10 days #20 tabs 06/21/23 06/24/23 06/24/23 Rx mg-trimethoprim 160 mg tablet (Bactrim DS) acetaminophen 500 mg tablet 1,000 - 1,500 mg PO Q6H PRN Pain 06/24/23 06/24/23 06/24/23 06:00 History 1500 mg Allergies Allergy/AdvReac Type Severity Reaction Status Date / Time No Known Allergies Allergy Verified 06/24/23 12:28 PFSH Acute 2 PFSH: Medical History Cigarette smoker Surgical History History of tympanostomy tube placement History of tonsillectomy Family History Mother Diabetes Hypertension Denies family history of Dementia Lung disease Cancer Stroke Social History Smoking and tobacco/nicotine status: current every day tobacco/nicotine user Second hand smoke exposure: No Alcohol intake: never Substance/Drug Use: never Adopted: No Caregiver/support person: No Lives independently: Yes Household members: family Housing: House Marital status: Single Number of children: 0 service: No Current occupational status: employed Current occupation: [employer] Pets and animals: Yes Pets & animals: dog(s) Do you think of yourself as: Straight/Heterosexual Current gender identity: Male Vitals/I&O/Wt Last Vital Signs Temp 97.5 F L 06/24/23 09:16 Pulse 103 H 06/24/23 12:00 Resp 15 06/24/23 09:16 BP 149/79 06/24/23 12:00 Pulse Ox 95 06/24/23 12:00 O2 Del Method Room Air 06/24/23 12:00 Weight last 48 hrs Weight 219 lb Physical Exam 2 Narrative: General : Patient is well developed , no acute distress, oriented x3 Head : Normal cephalic, a-traumatic. Ears : Pinnae and external canal are normal. Hearing is normal. Eyes : PERRLA, Sclera and injection are normal. No conjunctival discharge. Nose : Mucous membranes are without erythema. Throat : buccal mucosa is normal, gums are without significant recession or hypertrophy. Lungs : Equal chest rise bilaterally, no use of accessory muscles, trachea is midline. Cor : Rate and rhythm are normal. Abdomen : Soft, ND, NT, no g/r/m Skin: There is a diffuse area of blanchable cellulitis with pustules on the posterior neck. No fluctuance or active draining. Extremities : No edema, no cyanosis or clubbing, dorsalis pedis pulses are present bilaterally, non-tender to palpation of calves. Upper extremities are normal bilaterally. Back : non-tender to palpation, no CVA tenderness. Neuro : CN II - XII intact, Upper and lower extremities have equal and full strength Data 06/24/23 10:10 06/24/23 10:10 A&P Assessment and plan (1) Cellulitis of neck: Plan IV antibiotics Regular diet N.p.o. after midnight To OR tomorrow for incision and drainage of posterior neck abscess The risks and benefits of the procedure, including but not limited to, bleeding, infection, recurrence, scar, numbness, pain, damage to surrounding structures, were explained to the patient. They are understanding of the risks and wish to proceed. An abscess has not yet coalesced. However I believe this will happen by tomorrow Coding Level of Care Code 59025 Diagnoses Cellulitis of neck L03.221
[2023-06-24 14:08] LABS: Estmated Average Glucose 134; Hemoglobin A1C 6.3 % (4.0-6.0)
[2023-06-24] MEDS: morphine 4 mg/mL SDV 1 mL IVP (14:09)
[2023-06-24] MEDS: nicotine 21 mg Patch 1 PATCH TRANSDERMA (17:21)
[2023-06-24] MEDS: HYDROcodone-acetaminophen 5-325 mg Tablet 1 TAB PO ×2 (17:21→22:05)
[2023-06-24] MEDS: sodium chloride 0.9% 1,000 ML 75 ML IV (17:21)
[2023-06-24] MEDS: meropenem 1,000 MG in sodium chloride 0.9% (plus) 50 ML 100 MG IV (17:22)
[2023-06-24] MEDS: vancomycin 1,500 MG/300 ML PIGGYBACK 200 MG IV (22:06)
[2023-06-25] VITALS (10 sets, daily range): BP systolic 91–167; BP diastolic 54–104; PULSE 97–119; RESP 12–18; TEMP 37.1–37.5; O2SAT 90–97; BMI 32.0
[2023-06-25] MEDS: meropenem 1,000 MG in sodium chloride 0.9% (plus) 50 ML 100 MG IV ×3 (00:57→20:57)
[2023-06-25] MEDS: HYDROcodone-acetaminophen 5-325 mg Tablet 1 TAB PO ×4 (02:10→23:14)
[2023-06-25 05:40] LABS: Basophils # 0.1 10^3/uL (0.0-0.1); Basophils % 0.6 %; Eosinophils # 0.3 10^3/uL (0.0-0.8); Eosinophils % 1.4 %; Hematocrit 36.7 % (37-53); Lymphocytes # 1.3 10^3/uL (0.8-4.8); Lymphocytes % 5.9 %; Mean Corpuscular HGB Conc 31.1 g/dL (30-55); Mean Corpuscular Hemoglobin 25.7 pg (27-33); Mean Corpuscular Volume 82.7 fl (82-101); Mean Platelet Volume 10.3 fL (7.4-10.4); Monocytes # 2.3 10^3/uL (0.2-0.9); Monocytes % 10.6 %; Neutrophils # 17.19 10^3/uL (1.8-7.7); Neutrophils % 78.7 %; Nucleated Red Blood Cells % 0 %; Platelet Count 435 10^3/cmm (157-399); Red Blood Count 4.44 10^6/uL (3.85-5.65); Red Cell Distribution Width 15.4 % (12.1-15.1); White Blood Count 21.85 10^3/uL (3.29-11.43)
[2023-06-25 06:01] LABS: Alanine Aminotransferase 54 U/L (0-41); Albumin Level 3.3 g/dL (3.5-5.2); Alkaline Phosphatase 90 U/L (40-130); Aspartate Amino Transferase 23 U/L (0-40); Blood Urea Nitrogen 13 mg/dL (6-20); Carbon Dioxide 23 mmol/L (22-29); Chloride 100 mmol/L (98-107); Globulin 3.7 g/dL (1.3-4.6); Glomerular Filtration Rate 81.6 mL/min (90-130); Glucose 120 mg/dL (65-115); Osmolality Calculated 285 mOsm/kg (285-295); Sodium 137 mmol/L (136-145); Total Bilirubin 0.4 mg/dL (0.15-1.2)
--- NOTE | 2023-06-25 07:54 | W.PM.OPSUD ---
Surgery/Procedure H&P Update DATE OF PROCEDURE: June 25, 2023 DATE H&P PERFORMED: 06/24/23 H&P UPDATE INFORMATION: I have reviewed H&P completed within last 30 days, I have examined patient prior to procedure and No changes to prior documentation PLANNED PROCEDURE: Operation Date: 06/25/23 08:00 Proposed Procedures p I&D posterior neck(Not Applicable) - Raphael Olivo DO
--- NOTE | 2023-06-25 07:57 | P.ANESASSM_ITS ---
Pre-Anesthetic Assessment Height/Weight: Height 1.78 m Weight 101.287 kg Temp Pulse Resp BP Pulse Ox O2 Del Method 99.4 F 100 18 128/75 97 Room Air 06/25/23 07:00 06/25/23 07:00 06/25/23 07:00 06/25/23 07:00 06/25/23 07:00 06/25/23 03:31 Preop Diagnosis: posterior neck abscess Operation Date: 06/25/23 08:00 Proposed Procedures p I&D posterior neck(Not Applicable) - Raphael Olivo DO Familial anesthetic complications: none Was Beta Vannessa taken within 24 hours: N/A Was Clonidine taken within 24 hours: N/A Last intake: Intake Last Liquid Date 06/24/23 Last Liquid Time 22:00 Last Solid Date 06/24/23 Last Solid Time 20:00 Social Tobacco 1 pack(s) per day 20 pack years Exam alert, oriented x 3, clear to auscultation bilaterally and regular rate & rhythm Airway Submandibular: within normal limits Cervical ROM: within normal limits Mallampati: Class II Dentition: chipped, loose and full Comments: Comments: numerous chipped and loose Pulmonary None reported CV/HEM Hypertension None reported Hepatic None reported GI None reported Metabolic None reported Musc/skel None reported Anesthetic Plan ASA status: 2 Anesthesia: MAC Risk of > 500 ml blood loss (7ml/kg in children): No Medications/Allergies Home Medications Medication Instructions Recorded Confirmed Last Taken Type sulfamethoxazole 800 1 tab PO BID 10 days #20 tabs 06/21/23 06/24/23 06/24/23 Rx mg-trimethoprim 160 mg tablet (Bactrim DS) acetaminophen 500 mg tablet 1,000 - 1,500 mg PO Q6H PRN Pain 06/24/23 06/24/23 06/24/23 06:00 History 1500 mg Allergies Allergy/AdvReac Type Severity Reaction Status Date / Time No Known Allergies Allergy Verified 06/24/23 12:28 Current Medications Generic Name Dose Route Start Last Admin Trade Name Freq PRN Reason Stop Dose Admin Hydrocodone Bitart/Acetaminophen 1 tab 06/24/23 16:32 06/25/23 02:10 Hydrocodone-Acetaminophen 5-325 Mg Tablet PO 1 tab Q4H PRN Administration PAIN Enoxaparin Sodium 40 mg 06/24/23 16:32 06/24/23 17:22 Enoxaparin 40 Mg/0.4 Ml Syringe SUBCUT Not Given Q24H BARRETT Sodium Chloride 1,000 mls @ 75 mls/hr 06/24/23 16:32 06/24/23 17:21 Sodium Chloride 0.9% IV 75 mls/hr .[id number] BARRETT Administration Meropenem 1,000 mg/ Sodium 50 mls @ 100 mls/hr 06/24/23 16:32 06/25/23 01:36 Chloride IV Infused Q8H BARRETT Infusion Protocol Vancomycin/PEG/NADA/Lysine/Water 1,500 mg in 300 mls @ 200 mls/hr 06/24/23 22:00 06/24/23 23:51 Vancocin IV Infused Q12H BARRETT Infusion Nicotine 1 patch 06/24/23 16:32 06/24/23 17:21 Nicotine 21 Mg Patch TRANSDERMA 1 patch Q24H BARRETT Administration PFSH Anesthesia Medical History Essential hypertension Cigarette smoker Surgical History History of tympanostomy tube placement History of tonsillectomy Family History Mother Diabetes Hypertension Denies family history of Dementia Lung disease Cancer Stroke Social History Smoking and tobacco/nicotine status: current every day tobacco/nicotine user Second hand smoke exposure: No Alcohol intake: never Substance/Drug Use: never Adopted: No Caregiver/support person: No Lives independently: Yes Household members: family Housing: House Marital status: Single Number of children: 0 service: No Current occupational status: employed Current occupation: [employer] Pets and animals: Yes Pets & animals: dog(s) Do you think of yourself as: Straight/Heterosexual Current gender identity: Male Data Anesthesia 06/25/23 04:27 06/25/23 04:27 Short CBC 06/24/23 06/25/23 Range/Units 10:10 04:27 WBC 23.31 H 21.85 H (3.29-11.43) 10^3/uL Hgb 13.10 11.40 (11.27-16.99) g/dL Hct 41.2 36.7 L (37-53) % MCV 80.9 L 82.7 (82-101) fl Plt Count 461 H 435 H (157-399) 10^3/cmm Neut % (Auto) 85.3 78.7 % Neut # (Auto) 19.87 H 17.19 H (1.8-7.7) 10^3/uL BMP 06/24/23 06/25/23 10:10 04:27 Sodium 135 L 137 Potassium 3.6 4.0 Chloride 97 L 100 Carbon Dioxide 24 23 BUN 14 13 Creatinine 1.0 1.0 Glucose 181 H 120 H Calcium 9.9 9.0 Liver Function 06/24/23 06/25/23 Range/Units 10:10 04:27 Total Bilirubin 0.3 0.4 (0.15-1.2) mg/dL AST 25 23 (0-40) U/L ALT 49 H 54 H (0-41) U/L Alkaline Phosphatase 93 90 (40-130) U/L Albumin 4.0 3.3 L (3.5-5.2) g/dL Coags 06/24/23 10:10 ESR 97 H C-Reactive Protein 211.9 H Cardiac Studies: 2 No Data to Display
--- NOTE | 2023-06-25 08:39 | PM.OP ---
Operative Report Date of procedure: June 25, 2023 Pre-op diagnosis: Posterior neck abscess Post-op diagnosis: same Procedure done: Incision and drainage of posterior neck abscess Implants: Half-inch iodoform packing gauze Specimens removed/disposition: Cultures Surgeon: Raphael Olivo DO Estimated blood loss (mL): 10 Complications: None apparent Brief History: This very pleasant 42-year-old gentleman who presents to the hospital with several day history of painful swelling on his posterior neck. He was diagnosed with a posterior neck abscess. Incision and drainage was indicated. The risk and benefits were explained and documented. Procedure: Patient wheeled operative room and remained on the hospital bed in the supine position. He was then placed into the left lateral decubitus position. Adequate sedation was achieved by the department of anesthesia. A timeout was performed. All present were in agreement. The posterior neck was inspected prepped and draped in usual sterile fashion. Time was performed. All present were in agreement. 2% lidocaine with epinephrine was used to anesthetize the area of most fluctuance which was just left of midline on the posterior neck. A 10 blade scalpel was used to make a 1.5 cm incision through the skin and fascia. Hemostats were then used to probe the abscess cavity. A copious amount of purulence was expelled. Cultures were taken. There was not 1 definitive fluid collection. By manually milking the tissues distal to the incision towards the incision, significant purulence was expelled. I then decided to make a counterincision on the right side of the posterior neck. Again Asignificant amount of purulence was expelled. Abscess cavities were then irrigated with normal saline and packed with half-inch iodoform packing gauze. Sterile dressing was placed on top. Patient tolerated procedure well and was wheeled in postop anesthesia care unit in good condition
--- NOTE | 2023-06-25 08:49 | P.PCN_ITS ---
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
--- NOTE | 2023-06-25 08:49 | PM.PACU ---
PACU note Narrative: VSS, Good respiratory effort, report to CUSTODIAL OPERATIONS MANAGER Exam: awake
--- NOTE | 2023-06-25 09:04 | ANE.PACU2 ---
Inpatient post-anesthesia follow up: Airway intact: Yes Vital signs: Temperature 99.5 F Pulse Rate 116 Respiratory Rate 17 Blood Pressure 167/99 Pulse Oximetry 97 Oxygen Delivery Me thod Room Air Oxygen Flow Rate 6 Fraction of Inspir ed Oxygen Hydration adequate: Yes Nausea and vomiting: No Pain level: 2 Mental status: Baseline
[2023-06-25] MEDS: vancomycin 1,500 MG/300 ML PIGGYBACK 200 MG IV ×2 (10:06→23:13)
[2023-06-25] MEDS: sodium chloride 0.9% 1,000 ML 75 ML IV ×2 (10:22→20:57)
--- NOTE | 2023-06-25 13:33 | P.PN_ITS ---
Subjective 2 Subjective: Seen this morning. He is status post incision debridement of posterior neck area. Denies any pain at this time. Resting comfortably in bed. Vitals/I&O/Wt Last Vital Signs Temp 99.5 F 06/25/23 08:56 Pulse 118 H 06/25/23 11:34 Resp 17 06/25/23 11:13 BP 121/75 06/25/23 11:13 Pulse Ox 92 06/25/23 11:34 O2 Del Method Room Air 06/25/23 11:34 O2 Flow Rate 6 06/25/23 08:41 06/24/23 06/25/23 06/25/23 22:59 06:59 14:59 Intake Total 50 / 300 1350 / 1650 640 / 640 Output Total 25 / 25 Balance 50 / 300 1350 / 1650 615 / 615 Weight last 48 hrs Weight 101.287 kg Weight 100.698 kg Weight 99.337 kg Physical Exam 2 Narrative: General: Alert, oriented x 3 HEENT: Normocephalic, moist mucous membranes, Neck: Supple, posterior neck area covered with dressing. He just returned from the OR. Did not take dressing down as it was just packed. Respiratory: Clear to auscultation bilaterally Cardio: RRR, no murmurs, 2+ pulse radial and dorsalis pedis GI: Active bowel sounds throughout per auscultation, : Deferred, Data 06/25/23 04:27 06/25/23 04:27 A&P Assessment and plan (1) Cellulitis of neck: Posterior of the neck cellulitis severe erythema and pustules noted throughout. Patient received vancomycin while in the emergency room. This is questionable whether or not the patient has hidradenitis suppurativa. After further physical assessment and evaluation, patient has had several scarring to bilateral armpit areas and upper posterior back area that seem to have healed from previous like lesions. Continue vancomycin IV. CBC, CMP daily on vancomycin. Potentially renal toxic medication. Continue meropenem. Await cultures from incision debridement. General surgery consult. Patient is status post debridement at this time. Recommendations appreciated from general surgery. CBC, CMP in a.m. Tetanus was given (2) Essential hypertension: Patient reports a history of hypertension. Was placed on lisinopril in the past but stopped taking it. Will monitor here, consider starting ARB if remains elevated. Blood pressure has been okay so far. Plan Elevated sugar. Check A1c. Plan as stated above. Nicotine patch per patient request. Cessation discussed. Patient will continue IV antibiotics and require p.o. antibiotics when stable for discharge. CODE STATUS: Full code DVT prophylaxis: SCDs Lovenox Attestations 2 Medical Necessity Statement*: Will need greater than 2 midnight stay for evaluation and treatment of cellulitis, back of neck Diagnoses Cellulitis of neck L03.221 Essential hypertension I10
--- NOTE | 2023-06-25 14:30 | ECG_ITS ---
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 Measurements Intervals [place] Rate: 114 P: 54 KS: 165 QRS: -20 QRSD: 121 T: 27 QT: 296 QTc: 408 Interpretive Statements SINUS TACHYCARDIA MODERATE INTRAVENTRICULAR CONDUCTION DELAY [110+ ms QRS DURATION] EARLY REPOLARIZATION [ST ELEVATION WITH NORMALLY INFLECTED T-WAVE] ABNORMAL RHYTHM ECG Compared to ECG 10/23/2022 00:14:52 Early repolarization now present Sinus rhythm no longer present Electronically Signed On 06-27-2023 10:54:43 WIRE COILER by Lisandro Holt M.D. [email or web address] [id number]
[2023-06-25 14:34] LABS: C Reactive Protein 178.3 mg/L (0.0-4.9)
--- NOTE | 2023-06-25 15:49 | PC.CHAP ---
routine visit prayed for patient, very anabaptism he attended mu-ism regularly, loves Buddhist music. His illness was keeping him from going to work, and he was looking for a new mu-ism in [facility].
[2023-06-25] MEDS: enoxaparin 40 mg/0.4 mL Syringe SUBCUT (16:16)
[2023-06-26] VITALS (9 sets, daily range): BP systolic 104–150; BP diastolic 70–99; PULSE 78–98; RESP 17–20; TEMP 36.3–37.1; O2SAT 93–97; BMI 33.2
[2023-06-26 05:06] LABS: Basophils # 0.2 10^3/uL (0.0-0.1); Basophils % 0.8 %; Eosinophils # 0.6 10^3/uL (0.0-0.8); Eosinophils % 3.4 %; Hematocrit 33.8 % (37-53); Lymphocytes # 1.6 10^3/uL (0.8-4.8); Lymphocytes % 8.7 %; Mean Corpuscular HGB Conc 30.8 g/dL (30-55); Mean Corpuscular Hemoglobin 25.7 pg (27-33); Mean Corpuscular Volume 83.7 fl (82-101); Monocytes # 1.7 10^3/uL (0.2-0.9); Monocytes % 9.2 %; Neutrophils % 73.5 %; Nucleated Red Blood Cells % 0 %; Platelet Count 427 10^3/cmm (157-399); Red Blood Count 4.04 10^6/uL (3.85-5.65); Red Cell Distribution Width 15.6 % (12.1-15.1); White Blood Count 17.84 10^3/uL (3.29-11.43)
[2023-06-26] MEDS: meropenem 1,000 MG in sodium chloride 0.9% (plus) 50 ML 100 MG IV ×3 (05:23→19:21)
[2023-06-26 05:34] LABS: C Reactive Protein 203.8 mg/L (0.0-4.9)
[2023-06-26 05:36] LABS: Alanine Aminotransferase 104 U/L (0-41); Albumin Level 3.1 g/dL (3.5-5.2); Alkaline Phosphatase 82 U/L (40-130); Anion Gap 13.9 (5-19); Aspartate Amino Transferase 55 U/L (0-40); Blood Urea Nitrogen 10 mg/dL (6-20); Calcium 8.7 mg/dL (8.5-10.5); Carbon Dioxide 24 mmol/L (22-29); Chloride 101 mmol/L (98-107); Globulin 3.4 g/dL (1.3-4.6); Glomerular Filtration Rate 105.5 mL/min (90-130); Glucose 99 mg/dL (65-115); Osmolality Calculated 279 mOsm/kg (285-295); Potassium 3.9 mmol/L (3.5-5.1); Sodium 135 mmol/L (136-145); Total Bilirubin 0.5 mg/dL (0.15-1.2); Total Protein 6.5 g/dL (6.6-8.7)
--- NOTE | 2023-06-26 06:47 | PC.NURSE ---
three dressing changes done to posterior neck due to copious serosanguineous drainage during night-shift.
[2023-06-26 08:47] LABS: Vancomycin Trough 11.1 ug/mL (10-15)
[2023-06-26] MEDS: vancomycin 1,500 MG/300 ML PIGGYBACK 200 MG IV (09:33)
[2023-06-26] MEDS: nicotine 21 mg Patch 1 PATCH TRANSDERMA (09:33)
--- NOTE | 2023-06-26 11:06 | P.PN_ITS ---
Subjective 2 Subjective: Patient seen and examined. Pain is controlled. Vitals/I&O/Wt Last Vital Signs Temp 97.8 F 06/27/23 09:19 Pulse 88 06/27/23 09:56 Resp 17 06/27/23 09:19 BP 126/77 06/27/23 09:19 Pulse Ox 96 06/27/23 09:56 O2 Del Method Room Air 06/27/23 09:56 O2 Flow Rate 6 06/25/23 08:41 06/26/23 06/27/23 06/27/23 22:59 06:59 14:59 Intake Total 880 / 3190 50 / 3240 590 / 590 Output Total 1000 / 1000 100 / 1100 Balance -120 / 2190 -50 / 2140 590 / 590 Weight last 48 hrs Weight 229 lb 12.8 oz Weight 231 lb 6.4 oz Physical Exam 2 Narrative: General: No acute distress, awake extensor Skin: Minimal exudate, there is erythema and edema is much less than yesterday Data 06/27/23 04:11 06/27/23 04:11 Micro: Microbiology 06/25/23 08:22 Gram Stain - Final Neck Anaerobic Culture - Preliminary Abscess Culture - Preliminary Coag positive Staphylococcus 06/24/23 11:09 Blood Culture - Preliminary Blood 06/24/23 10:10 Blood Culture - Preliminary Blood A&P Assessment and plan (1) Cellulitis of neck: Plan Status post incision and drainage of posterior neck abscess Dressing changes daily with half-inch plain packing gauze covered by gauze and ABD Pleat antibiotic course per hospitalist Medical management per hospitalist Attestations 2 Medical Necessity Statement*: Primary Coding Level of Care Code 32584 Diagnoses Cellulitis of neck L03.221
[2023-06-26] MEDS: HYDROcodone-acetaminophen 5-325 mg Tablet 1 TAB PO ×2 (13:19→19:27)
--- NOTE | 2023-06-26 14:19 | P.PN_ITS ---
Subjective 2 Subjective: Seen today. CRP 200, WBC 17.84. Patient feels okay laying in bed. Vitals/I&O/Wt Last Vital Signs Temp 98.0 F 06/26/23 12:16 Pulse 97 06/26/23 12:16 Resp 20 H 06/26/23 12:16 BP 138/76 06/26/23 12:16 Pulse Ox 95 06/26/23 12:16 O2 Del Method Room Air 06/26/23 12:16 O2 Flow Rate 6 06/25/23 08:41 06/25/23 06/26/23 06/26/23 22:59 06:59 14:59 Intake Total 1683.75 / 2323.75 350 / 2673.75 2310 / 2310 Output Total 1100 / 1125 Balance 1683.75 / 2298.75 -750 / 1548.75 2310 / 2310 Weight last 48 hrs Weight 104.961 kg Weight 101.287 kg Weight 100.698 kg Physical Exam 2 Narrative: General: Alert, oriented x 3 HEENT: Normocephalic, moist mucous membranes, Neck: Supple, posterior neck area covered with dressing. Dressing soaked. Respiratory: Clear to auscultation bilaterally Cardio: RRR, no murmurs, 2+ pulse radial and dorsalis pedis GI: Active bowel sounds throughout per auscultation, : Deferred, Data 06/26/23 04:30 06/26/23 04:30 Micro: Microbiology 06/25/23 08:22 Gram Stain - Final Neck Abscess Culture - Preliminary Coag positive Staphylococcus 06/24/23 11:09 Blood Culture - Preliminary Blood 06/24/23 10:10 Blood Culture - Preliminary Blood A&P Assessment and plan (1) Cellulitis of neck: Posterior of the neck cellulitis severe erythema and pustules noted throughout. Patient received vancomycin while in the emergency room. This is questionable whether or not the patient has hidradenitis suppurativa. After further physical assessment and evaluation, patient has had several scarring to bilateral armpit areas and upper posterior back area that seem to have healed from previous like lesions. Continue vancomycin IV. CBC, CMP daily on vancomycin. Potentially renal toxic medication. Continue meropenem. Await cultures from incision debridement. General surgery consult. Patient is status post debridement at this time. Recommendations appreciated from general surgery. CBC, CMP in a.m. Tetanus was given (2) Essential hypertension: Patient reports a history of hypertension. Was placed on lisinopril in the past but stopped taking it. Will monitor here, consider starting ARB if remains elevated. Blood pressure has been okay so far. Plan Elevated sugar. Check A1c. Plan as stated above. Nicotine patch per patient request. Cessation discussed. Patient will continue IV antibiotics and require p.o. antibiotics when stable for discharge. CODE STATUS: Full code DVT prophylaxis: SCDs, Lovenox Attestations 2 Medical Necessity Statement*: Will need greater than 2 midnight stay for evaluation and treatment of cellulitis, back of neck Diagnoses Cellulitis of neck L03.221 Essential hypertension I10
[2023-06-26] MEDS: enoxaparin 40 mg/0.4 mL Syringe SUBCUT (17:11)
[2023-06-26] MEDS: vancomycin 1,750 MG/350 ML PIGGYBACK 200 MG IV (19:54)
[2023-06-27] MEDS: meropenem 1,000 MG in sodium chloride 0.9% (plus) 50 ML 100 MG IV ×2 (03:36→12:22)
[2023-06-27 04:00] VITALS: BP 136/78; PULSE 85; RESP 17; TEMP 36.9; O2SAT 94
[2023-06-27 04:19] VITALS: BMI 32.9
[2023-06-27] MEDS: HYDROcodone-acetaminophen 5-325 mg Tablet 1 TAB PO ×2 (04:32→13:29)
[2023-06-27 05:09] LABS: Basophils # 0.2 10^3/uL (0.0-0.1); Basophils % 1.5 %; Eosinophils # 0.8 10^3/uL (0.0-0.8); Eosinophils % 6.4 %; Hematocrit 33.4 % (37-53); Lymphocytes # 1.2 10^3/uL (0.8-4.8); Lymphocytes % 10.2 %; Mean Corpuscular HGB Conc 31.1 g/dL (30-55); Mean Corpuscular Hemoglobin 25.6 pg (27-33); Mean Corpuscular Volume 82.3 fl (82-101); Mean Platelet Volume 10.1 fL (7.4-10.4); Monocytes # 1.2 10^3/uL (0.2-0.9); Monocytes % 10.5 %; Neutrophils # 7.53 10^3/uL (1.8-7.7); Neutrophils % 64.2 %; Nucleated Red Blood Cells % 0 %; Platelet Count 486 10^3/cmm (157-399); Red Blood Count 4.06 10^6/uL (3.85-5.65); Red Cell Distribution Width 15.2 % (12.1-15.1); White Blood Count 11.73 10^3/uL (3.29-11.43)
[2023-06-27 05:31] LABS: Anion Gap 16.9 (5-19); Blood Urea Nitrogen 11 mg/dL (6-20); C Reactive Protein 125.7 mg/L (0.0-4.9); Calcium 8.8 mg/dL (8.5-10.5); Carbon Dioxide 22 mmol/L (22-29); Chloride 101 mmol/L (98-107); Glucose 95 mg/dL (65-115); Osmolality Calculated 281 mOsm/kg (285-295); Potassium 3.9 mmol/L (3.5-5.1); Sodium 136 mmol/L (136-145)
[2023-06-27] MEDS: vancomycin 1,750 MG/350 ML PIGGYBACK 200 MG IV (08:52)
[2023-06-27] MEDS: nicotine 21 mg Patch 1 PATCH TRANSDERMA (08:53)
[2023-06-27 09:19] VITALS: BP 126/77; PULSE 79; RESP 17; TEMP 36.6; O2SAT 96
[2023-06-27 09:56] VITALS: PULSE 88; O2SAT 96
[2023-06-27 11:11] VITALS: BP 125/80; PULSE 76; RESP 17; TEMP 36.7; O2SAT 95
--- NOTE | 2023-06-27 12:19 | PM.DCS ---
Discharge Providers Date of Admission: 06/24/23 16:32 Date of Discharge: June 27, 2023 Attending Provider at Admission: Ion Braker MD Attending Provider at Discharge: Syeda Newton MD Primary Care Provider: MAVERICK Dubois Diagnoses at Discharge Discharge Diagnosis (1) Cellulitis of neck: Status: Acute Reason for Visit Reason for Visit: pt states spider bite on neck Hospital Course Hospital Course Admitted for cellulitis of posterior neck. Extensive debridement and washout was done by general surgery. Patient discharged home on linezolid as culture grew MRSA. Patient to follow-up with general surgery and wound care as an outpatient as well as primary care doctor. Dressing change instructions given to patient. Member will be helping him with dressing changes. All questions answered. Physical Exam Narrative: General: Alert, oriented x 3 HEENT: Normocephalic, moist mucous membranes, Neck: Supple, posterior neck area covered with dressing. Minimal exudate at time of discharge. Wound looks clean. Respiratory: Clear to auscultation bilaterally Cardio: RRR, no murmurs, 2+ pulse radial and dorsalis pedis GI: Active bowel sounds throughout per auscultation, : Deferred, Discharge Data Studies Completed and Pending Completed Studies During Hospitalization Category Date Time Status CT neck w con* [id number] Stat Cat Scan 06/24/23 10:12 Completed Pending at discharge Category Date Time Status Abscess Culture and Gram Stain Routine Lab 06/25/23 08:22 Results Anaerobic Culture Routine Lab 06/25/23 08:22 Results Blood Cultures ([facility]) Routine Lab 06/24/23 10:10 Results Blood Cultures ([facility]) Routine Lab 06/24/23 11:09 Results Vancomycin Trough Timed Lab 06/28/23 07:00 Ordered Laboratory Results WBC 11.73 10^3/uL (3.29-11.43) H 06/27/23 04:11 RBC 4.06 10^6/uL (3.85-5.65) 06/27/23 04:11 Hgb 10.40 g/dL (11.27-16.99) L 06/27/23 04:11 Hct 33.4 % (37-53) L 06/27/23 04:11 MCV 82.3 fl (82-101) 06/27/23 04:11 MCH 25.6 pg (27-33) L 06/27/23 04:11 MCHC 31.1 g/dL (30-55) 06/27/23 04:11 RDW 15.2 % (12.1-15.1) H 06/27/23 04:11 Plt Count 486 10^3/cmm (157-399) H 06/27/23 04:11 MPV 10.1 fL (7.4-10.4) 06/27/23 04:11 Neut % (Auto) 64.2 % 06/27/23 04:11 Lymph % (Auto) 10.2 % 06/27/23 04:11 [place] % (Auto) 10.5 % 06/27/23 04:11 Eos % (Auto) 6.4 % 06/27/23 04:11 Baso % (Auto) 1.5 % 06/27/23 04:11 Neut # (Auto) 7.53 10^3/uL (1.8-7.7) 06/27/23 04:11 Lymph # (Auto) 1.2 10^3/uL (0.8-4.8) 06/27/23 04:11 [place] # (Auto) 1.2 10^3/uL (0.2-0.9) H 06/27/23 04:11 Eos # (Auto) 0.8 10^3/uL (0.0-0.8) 06/27/23 04:11 Baso # (Auto) 0.2 10^3/uL (0.0-0.1) H 06/27/23 04:11 Nucleated RBC % (auto) 0 % 06/27/23 04:11 Nucleated RBCs # 0.0 /100WBC 06/27/23 04:11 ESR 97 mm/hr (0-10) H 06/24/23 10:10 Sodium 136 mmol/L (136-145) 06/27/23 04:11 Potassium 3.9 mmol/L (3.5-5.1) 06/27/23 04:11 Chloride 101 mmol/L (98-107) 06/27/23 04:11 Carbon Dioxide 22 mmol/L (22-29) 06/27/23 04:11 Anion Gap 16.9 (5-19) 06/27/23 04:11 BUN 11 mg/dL (6-20) 06/27/23 04:11 Creatinine 0.8 mg/dL (0.7-1.2) 06/27/23 04:11 GFR Calculation 105.0 mL/min (90-130) 06/27/23 04:11 Glucose 95 mg/dL (65-115) 06/27/23 04:11 Estimat Average Glucose 134 06/24/23 10:10 Hemoglobin A1c 6.3 % (4.0-6.0) H 06/24/23 10:10 Calculated Osmolality 281 mOsm/kg (285-295) L 06/27/23 04:11 Lactic Acid 1.7 mmol/L (0.5-2.2) 06/24/23 10:10 Calcium 8.8 mg/dL (8.5-10.5) 06/27/23 04:11 Total Bilirubin 0.5 mg/dL (0.15-1.2) 06/26/23 04:30 AST 55 U/L (0-40) H 06/26/23 04:30 ALT 104 U/L (0-41) H 06/26/23 04:30 Alkaline Phosphatase 82 U/L (40-130) 06/26/23 04:30 C-Reactive Protein 125.7 mg/L (0.0-4.9) H 06/27/23 04:11 Total Protein 6.5 g/dL (6.6-8.7) L 06/26/23 04:30 Albumin 3.1 g/dL (3.5-5.2) L 06/26/23 04:30 Globulin 3.4 g/dL (1.3-4.6) 06/26/23 04:30 Vancomycin Trough 11.1 ug/mL (10-15) 06/26/23 08:26 Vitals Last Vital Signs Temp 98.0 F 06/27/23 11:11 Pulse 76 06/27/23 11:11 Resp 17 06/27/23 11:11 BP 125/80 06/27/23 11:11 Pulse Ox 95 06/27/23 11:11 O2 Del Method Room Air 06/27/23 11:11 O2 Flow Rate 6 06/25/23 08:41 Discharge Plan Discharge Patient Disposition: Home Condition: Stable Prescriptions: Continued acetaminophen 500 mg Tablet 1,000 - 1,500 mg PO Q6H PRN (Reason: Pain) Discontinued sulfamethoxazole-trimethoprim [Bactrim DS] 800-160 mg tablet 1 tab PO BID 10 Days Qty: 20 0RF Rx Instructions: for 10 days (rx filled 06/21/23) Discharge Orders: Discharge Order (Routine); Ordered 06/27/23 Ordered By: Syeda Newton Other Ambulatory Orders: Basic Metabolic Panel (Routine) Timeframe: 4 Days Facility: [facility] - Location: Lab - Main Lab Ordered By: Syeda Newton Referrals: Madalyn Poe FNP-C [Primary Care Provider] - 07/07/23 10:20 am WOUND CARE CLINIC, [Staff Physician] - 06/29/23 2:00 pm (We have notified your physician's clinic of the need for a follow-up appointment to be scheduled. If you have not heard from them within the next 2 business days, please call them directly. ) Discharge Diet: Regular Discharge Activity: Resume usual activity Patient Instructions: Cellulitis (ED), Insect Bite or Sting (DC), Hypertension (GEN), Opioid Safety Activity Restrictions/Additional Instructions: Please take your antibiotic for total of 10 days from day of discharge. Follow up at wound care clinic. Change dressing daily. Instructions given to you by nurse. Follow up with Primary care doctor in 7-10 days. Follow up with Dr. Olivo within 1 week of hospital discharge. Discharge Attestations Time Spent in Discharge Care*: less than 30 min Quality Metrics Clinical Quality Measures [ No reported AMI, CVA or VTE this stay] Coding Level of Care Code 31589 Total time (in minutes) for Discharge: 31 Diagnoses Cellulitis of neck L03.221
--- NOTE | 2023-06-27 13:18 | PC.NURSE ---
Discharge awaiting transportation home from patients sister.
--- NOTE | 2023-06-27 16:03 | PC.SOCIAL ---
Hubert from lab called with a report of MRSA from [facility], ASHA called Dr Newton, she stated she wanted patient to stop Bactrim and she was going to call in a new order. ASHA called Patient and notified him to stop current ABT, and to check with pharmacy cause doctor calling in a new script for him. He voiced understanding
== END 2023-06-27 14:08 | disposition home or self-care (01) | DRG 603 ==
LOC: ER 14:03 → MEDSURG 16:17
PROVIDERS: Family Medicine; Surgery; Admitting Provider Internal Medicine; Emergency Provider Physician Assistant; PCP Nurse Practitioner Family; Visit Provider Internal Medicine
PROC: 0J950ZZ Drainage of Left Neck Subcutaneous Tissue and Fascia, Open Approach (ICD-10-PCS; principal; 2023-06-25 08:00)
DX: L03.221 Cellulitis of neck (principal); B95.62 Methicillin resistant Staphylococcus aureus infection as the cause of diseases classified elsewhere; I10 Essential (primary) hypertension; F17.210 Nicotine dependence, cigarettes, uncomplicated
CPT/HCPCS: 36415; 70491; 80048; 80053; 80202; 83036; 83605; 85025; 85651; 86140; 87040; 87070; 87075; 87077; 87186; 87205; 90471; 90715; 93005; 96365; 96372; 96375; 99285; J1170; J1650; J2185; J2250; J2270; J2704; J3010; J3370; J3372; J7030; J7050; Q9967

== ENCOUNTER 2024-02-26 16:37 | Emergency (ER) | payer OTHER, SELFPAY ==
[2024-02-26 16:39] VITALS: BP 167/105; PULSE 92; RESP 16; TEMP 36.4; O2SAT 99; BMI 31.7
--- NOTE | 2024-02-26 16:47 | XRR_ITS ---
PROCEDURE INFORMATION: Exam: XR Chest Exam date and time: 02/26/2024 5:25 PM Age: 43 years old Clinical indication: Cough; Patient HX: Hypertension; Dizziness; Blurry vision; Weakness TECHNIQUE: Imaging protocol: Radiologic exam of the chest. Views: 1 view. COMPARISON: CR (CHEST, ) 10/22/2022 9:39 PM FINDINGS: Lungs: Unremarkable. No consolidation. Pleural spaces: Unremarkable. No pleural effusion. No pneumothorax. Heart/Mediastinum: Unremarkable. No cardiomegaly. Bones/joints: Unremarkable. XR/XR chest 1V portable [id number] IMPRESSION: No acute findings.
--- NOTE | 2024-02-26 16:48 | CTR_ITS ---
PROCEDURE INFORMATION: Exam: CT Head Without Contrast Exam date and time: 02/26/2024 5:29 PM Age: 43 years old Clinical indication: Dizziness TECHNIQUE: Imaging protocol: Computed tomography of the head without contrast. Radiation optimization: All CT scans at this facility use at least one of these dose optimization techniques: automated exposure control; mA and/or kV adjustment per patient size (includes targeted exams where dose is matched to clinical indication); or iterative reconstruction. COMPARISON: CT neck w con* [id number] 06/24/2023 10:24 AM RADIATION DOSE METRICS: Total DLP (mGy-cm): 1220.05 FINDINGS: Brain: Normal. No hemorrhage. Unremarkable white matter. No mass effect. Uriel cisterna magna. Cerebral ventricles: No ventriculomegaly. Paranasal sinuses: Mucosal thickening in bilateral maxillary sinuses with an air-fluid level in the right maxillary sinus. Patchy opacification of the ethmoid air cells. Mild mucosal thickening in the sphenoid sinuses. Mastoid air cells: Visualized mastoid air cells are well aerated. Bones: Unremarkable. No acute fracture. Soft tissues: Unremarkable. CT/CT head wo con* [id number] IMPRESSION: 1. No acute intracranial abnormality. 2. Paranasal sinus disease, including an air-fluid level in the right maxillary sinus which suggests an acute sinusitis component.
--- NOTE | 2024-02-26 16:52 | ECG_ITS ---
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1980 Requested By: So Xiong Order Number: [id number] Antonio MD: ERIK WATKINS Measurements Intervals [place] Rate: 84 P: 53 NC: 196 QRS: -20 QRSD: 114 T: 6 QT: 344 QTc: 407 Interpretive Statements SINUS RHYTHM MODERATE INTRAVENTRICULAR CONDUCTION DELAY [110+ ms QRS DURATION] VOLTAGE CRITERIA FOR LVH [MEETS CRITERIA IN ONE OF: R(aVL), S(V1), R(V5), R(V5/V6)+S(V1)] Compared to ECG 06/25/2023 14:30:57 Left ventricular hypertrophy now present Sinus tachycardia no longer present Early repolarization no longer present Electronically Signed On 02-26-2024 18:42:57 CDT by ERIK WATKINS [email or web address] medical centerDrive Powercle[id number]
[2024-02-26 17:01] LABS: Basophils # 0.1 10^3/uL (0.0-0.1); Basophils % 1.2 %; Eosinophils # 0.5 10^3/uL (0.0-0.8); Eosinophils % 4.8 %; Hematocrit 40.5 % (37-53); Lymphocytes # 1.3 10^3/uL (0.8-4.8); Lymphocytes % 13.5 %; Mean Corpuscular HGB Conc 31.1 g/dL (30-55); Mean Corpuscular Hemoglobin 25.5 pg (27-33); Mean Platelet Volume 10.2 fL (7.4-10.4); Monocytes # 0.7 10^3/uL (0.2-0.9); Monocytes % 7.1 %; Neutrophils # 6.79 10^3/uL (1.8-7.7); Nucleated Red Blood Cells % 0 %; Platelet Count 312 10^3/cmm (157-399); Red Blood Count 4.94 10^6/uL (3.85-5.65); White Blood Count 9.31 10^3/uL (3.29-11.43)
[2024-02-26 17:10] VITALS: BP 149/104; PULSE 86; O2SAT 97
--- NOTE | 2024-02-26 17:17 | W.ED.GENADLT ---
HPI - General Adult General: Chief complaint: General Medical Stated complaint: dizzy/blurry vision Time Seen by Provider: 02/26/24 16:45 History of Present Illness: 43-year-old man with a history of hypertension who is not currently on any medications for it that presents emergency room with lightheadedness. This started around noon today. He says it is present when he sits but worse when he stands up. He has a chronic cough. No chest pain. No altered mental status. No focal motor deficits. He said at times his vision did go slightly dark when he would stand up. No abdominal pain. He has had some mild nausea but no vomiting. No lower extremity swelling. Related Data Home Medications Medication Instructions Recorded Confirmed acetaminophen 500 mg tablet 1,000 - 1,500 mg PO Q6H PRN Pain 06/24/23 06/24/23 Allergies Allergy/AdvReac Type Severity Reaction Status Date / Time No Known Allergies Allergy Verified 06/24/23 12:28 Review of Systems Narrative: Constitutional symptoms: Negative except as documented in HPI. Skin symptoms: Negative except as documented in HPI. Eye symptoms: Negative except as documented in HPI. ENMT symptoms: Negative except as documented in HPI. Respiratory symptoms: Negative except as documented in HPI. Cardiovascular symptoms: Negative except as documented in HPI. Gastrointestinal symptoms: Negative except as documented in HPI. Genitourinary symptoms: Negative except as documented in HPI. Musculoskeletal symptoms: Negative except as documented in HPI. Neurologic symptoms: Negative except as documented in HPI. Psychiatric symptoms: Negative except as documented in HPI. Endocrine symptoms: Negative except as documented in HPI. PFS ED PFSH: Medical History Essential hypertension Cigarette smoker Surgical History History of tympanostomy tube placement History of tonsillectomy Family History Mother Diabetes Hypertension Denies family history of Dementia Lung disease Cancer Stroke Social History Smoking and tobacco/nicotine status: current every day tobacco/nicotine user Second hand smoke exposure: No Alcohol intake: never Substance/Drug Use: never Adopted: No Caregiver/support person: No Lives independently: Yes Household members: family Housing: House Marital status: Single Number of children: 0 service: No Current occupational status: employed Current occupation: [employer] Pets and animals: Yes Pets & animals: dog(s) Do you think of yourself as: Straight/Heterosexual Current gender identity: Male Physical Exam Narrative: EXAM NARRATIVE: General: Alert, no acute distress. Skin: Warm, dry. Head: Normocephalic, atraumatic. Neck: Supple, trachea midline. Eye: Extraocular movements are intact. Ears, nose, mouth and throat: mucosa moist. Cardiovascular: Regular, Normal peripheral perfusion. Respiratory: Lungs are clear to auscultation, respirations are non-labored, breath sounds are equal, Symmetrical chest wall expansion. Gastrointestinal: Soft, Nontender, Non distended Musculoskeletal: Normal ROM, no deformity. Neurological: Alert and oriented, No focal neurological deficit observed. Psychiatric: Cooperative, appropriate mood & affect. Course Vital Signs: Vital signs: Vital Signs Temperature 97.5 F L 02/26/24 16:39 Pulse Rate 76 02/26/24 18:08 Respiratory Rate 16 02/26/24 16:39 Blood Pressure 156/124 02/26/24 18:08 Pulse Oximetry 99 02/26/24 18:08 Oxygen Delivery Me thod Room Air 02/26/24 17:10 [facility] - General Adult Medical Decision Making Medical decision making: Differential diagnosis including but not limited to and based on the above HPI, review of systems and physical exam: for patient with complaint of dizziness: stroke, hypotension, hypertension, infection, vertigo, orthostasis Orders placed to evaluate differential diagnosis based on the above differential, HPI and physical exam EKG: Time 1652. Rate 84. Normal sinus rhythm, No ST-T changes, no ectopy, normal DC & QRS intervals, This was reviewed and interpreted by myself the ER physician at 1656. Chest x-ray: No acute process. No infiltrate. No pneumothorax. This was reviewed and interpreted by myself the ER physician. CT head: No acute intracranial process. no intracranial hemorrhage, no evidence of infarct. no evidence of acute fracture.This was reviewed and interpreted by myself the ER physician. Lab Review: Laboratory results were reviewed and interpreted by myself the emergency room physician. Lab work is unremarkable. No leukocytosis. No anemia. No renal failure. Glucose is 127. Troponin is negative. Liver enzymes are unremarkable. Urinalysis shows no signs of infection . I reviewed the patient's medical record. Reexamination: Patient remained stable. No increased work of breathing. No altered mental status. No focal motor deficits. Assessment and plan: Lightheadedness Hypertension ?Recommend patient follow-up with a primary care provider in resume hypertensive medications. - Discharged home - Discussed findings and plan with patient. Answered any questions. - All laboratory values were reviewed and interpreted personally by myself, the ER physician - All imaging was reviewed and interpreted personally by myself, the ER physician. - Evaluation and treatment of this problem were appropriate in the emergency setting Lab Data 02/26/24 16:56 02/26/24 16:56 Laboratory Results WBC 9.31 10^3/uL (3.29-11.43) 02/26/24 16:56 RBC 4.94 10^6/uL (3.85-5.65) 02/26/24 16:56 Hgb 12.60 g/dL (11.27-16.99) 02/26/24 16:56 Hct 40.5 % (37-53) 02/26/24 16:56 MCV 82.0 fl (82-101) 02/26/24 16:56 MCH 25.5 pg (27-33) L 02/26/24 16:56 MCHC 31.1 g/dL (30-55) 02/26/24 16:56 RDW 15.0 % (12.1-15.1) 02/26/24 16:56 Plt Count 312 10^3/cmm (157-399) 02/26/24 16:56 MPV 10.2 fL (7.4-10.4) 02/26/24 16:56 Neut % (Auto) 73.0 % 02/26/24 16:56 Lymph % (Auto) 13.5 % 02/26/24 16:56 [place] % (Auto) 7.1 % 02/26/24 16:56 Eos % (Auto) 4.8 % 02/26/24 16:56 Baso % (Auto) 1.2 % 02/26/24 16:56 Neut # (Auto) 6.79 10^3/uL (1.8-7.7) 02/26/24 16:56 Lymph # (Auto) 1.3 10^3/uL (0.8-4.8) 02/26/24 16:56 [place] # (Auto) 0.7 10^3/uL (0.2-0.9) 02/26/24 16:56 Eos # (Auto) 0.5 10^3/uL (0.0-0.8) 02/26/24 16:56 Baso # (Auto) 0.1 10^3/uL (0.0-0.1) 02/26/24 16:56 Nucleated RBC % (auto) 0 % 02/26/24 16:56 Nucleated RBCs # 0.0 /100WBC 02/26/24 16:56 Sodium 139 mmol/L (136-145) 02/26/24 16:56 Potassium 3.9 mmol/L (3.5-5.1) 02/26/24 16:56 Chloride 104 mmol/L (98-107) 02/26/24 16:56 Carbon Dioxide 25 mmol/L (22-29) 02/26/24 16:56 Anion Gap 13.9 (5-19) 02/26/24 16:56 BUN 13 mg/dL (6-20) 02/26/24 16:56 Creatinine 1.1 mg/dL (0.7-1.2) 02/26/24 16:56 GFR Calculation 72.7 mL/min (90-130) L 02/26/24 16:56 Glucose 127 mg/dL (65-115) H 02/26/24 16:56 Calculated Osmolality 290 mOsm/kg (285-295) 02/26/24 16:56 Calcium 9.0 mg/dL (8.5-10.5) 02/26/24 16:56 Total Bilirubin 0.3 mg/dL (0.15-1.2) 02/26/24 16:56 AST 16 U/L (0-40) 02/26/24 16:56 ALT 21 U/L (0-41) 02/26/24 16:56 Alkaline Phosphatase 91 U/L (40-130) 02/26/24 16:56 Troponin T Baseline 8 ng/L (0-15) 02/26/24 16:56 C-Reactive Protein 3.0 mg/L (0.0-4.9) 02/26/24 16:56 Total Protein 7.4 g/dL (6.6-8.7) 02/26/24 16:56 Albumin 4.4 g/dL (3.5-5.2) 02/26/24 16:56 Globulin 3.0 g/dL (1.3-4.6) 02/26/24 16:56 Urine Color Yellow (Yellow) 02/26/24 17:31 Urine Appearance Clear (CLEAR) 02/26/24 17:31 Urine pH 6.5 (5-7) 02/26/24 17:31 Ur Specific [place] 1.014 (1.005-1.030) 02/26/24 17:31 Urine Protein Negative (Negative) 02/26/24 17:31 Urine Glucose (UA) Negative (Normal) 02/26/24 17:31 Urine Ketones Negative (Negative) 02/26/24 17:31 Urine Blood Negative (Negative) 02/26/24 17:31 Urine Nitrate Negative (Negative) 02/26/24 17:31 Urine Bilirubin Negative (Negative) 02/26/24 17:31 Urine Urobilinogen 1.0 mg/dL (Negative) 02/26/24 17:31 Ur Leukocyte Esterase Negative (Negative) 02/26/24 17:31 Urine RBC 0-2 /hpf (0-2) 02/26/24 17:31 Urine WBC 0-5 /hpf (0-5) 02/26/24 17:31 Ur Squamous Epith Cells 0-5 /hpf (0-5) 02/26/24 17:31 Amorphous Sediment Not Reportable 02/26/24 17:31 Urine Bacteria None seen /hpf (NONE) 02/26/24 17:31 Hyaline Casts 0.40 /lpf 02/26/24 17:31 Coronavirus (PCR) Negative (Negative) 02/26/24 17:18 Influenza A (PCR) Negative (Negative) 02/26/24 17:18 Influenza Type B (PCR) Negative (Negative) 02/26/24 17:18 RSV (PCR) Negative (Negative) 02/26/24 17:18 All radiology interpretation(s) finalized by discharge Discharge Plan Discharge Patient Disposition: Home Clinical Impression: Hypertension, Dizziness Condition: Stable Prescriptions: No Action acetaminophen 500 mg Tablet 1,000 - 1,500 mg PO Q6H PRN (Reason: Pain) Discharge Orders: Discharge ED (Routine); Ordered 02/26/24 Ordered By: So Williamson Referrals: Madalyn Poe FNP-C [Primary Care Provider] - Discharge Diet: Usual diet Discharge Activity: Increase activity as tolerated Patient Instructions: Hypertension (ED), Dizziness (ED) Activity Restrictions/Additional Instructions: Thank you for choosing [facility] for your healthcare needs today. Please realize this is an emergency room and that we are providing you with a medical screening exam and this may not be complete and all inclusive of all the testing and or work up that you may need to determine your ailment or severity of your illness. You have been screened and evaluated and felt safe for discharge. Health conditions do change or evolve sometimes and as such it is important that you follow up with your Primary Doctor to be re checked, 3-5 days is a general good time frame for follow up. You are always welcome to return to the ED for re assessment if your symptoms are worsening or you have new concerns Coding Level of Care Code ED Glass Blower for Horacio Argueta
[2024-02-26 17:22] LABS: Alanine Aminotransferase 21 U/L (0-41); Albumin Level 4.4 g/dL (3.5-5.2); Alkaline Phosphatase 91 U/L (40-130); Anion Gap 13.9 (5-19); Aspartate Amino Transferase 16 U/L (0-40); Blood Urea Nitrogen 13 mg/dL (6-20); Carbon Dioxide 25 mmol/L (22-29); Chloride 104 mmol/L (98-107); Creatinine Clr Calc Pharmacy 101.6941; Glomerular Filtration Rate 72.7 mL/min (90-130); Glucose 127 mg/dL (65-115); Osmolality Calculated 290 mOsm/kg (285-295); Potassium 3.9 mmol/L (3.5-5.1); Sodium 139 mmol/L (136-145); Total Bilirubin 0.3 mg/dL (0.15-1.2); Total Protein 7.4 g/dL (6.6-8.7)
[2024-02-26 17:23] LABS: Troponin(5th) Baseline 8 ng/L (0-15)
[2024-02-26 17:39] LABS: Bilirubin Urine Negative (Negative); Blood Urine Negative (Negative); Glucose Urine UA Negative (Normal); Ketones Urine Negative (Negative); Leukocyte Esterase Urine Negative (Negative); Nitrate Urine Negative (Negative); Protein Urine Negative (Negative); Specific Gravity, Urine 1.014 (1.005-1.030); Urine Appearance Clear (CLEAR); Urine Color Yellow (Yellow); pH Urine 6.5 (5-7)
[2024-02-26 17:44] LABS: Bacteria Urine None Seen /hpf; RBC Urine 0-2 /hpf (0-2); Squamous Epithelial Cell Urine 0-5 /hpf (0-5); WBC Urine 0-5 /hpf (0-5)
[2024-02-26 18:02] LABS: Covid PCR NEGATIVE (Negative); Influenza A NEGATIVE (Negative); Influenza B NEGATIVE (Negative); Respiratory Syncytial Virus Ce NEGATIVE (Negative)
[2024-02-26 18:08] VITALS: BP 156/124; PULSE 76; O2SAT 99
[2024-02-26 18:58] VITALS: BP 173/109; PULSE 80; O2SAT 99
== END 2024-02-26 18:59 | disposition home or self-care (01) ==
PROVIDERS: Emergency Provider Emergency Medicine; PCP Nurse Practitioner Family
DX: R42 Dizziness and giddiness (principal); I10 Essential (primary) hypertension; Z72.0 Tobacco use
CPT/HCPCS: 0241U; 36415; 70450; 71045; 80053; 81001; 84484; 85025; 86140; 93005; 99285